=== PATIENT | male | born 1975 | race Caucasian/White ===

== ENCOUNTER → 2017-07-08 | Outpatient (CLI) | payer OTHER ==
[~2017-07-08] MED LIST: ALBUAER19 INH; ATEN50TA PO; BECL0.072 INH; RANI150C4 PO
[2017-07-08 10:41] LABS: BLOOD UREA NITROGEN 23 mg/dl (7-18); BUN/CREATININE RATIO 15.2 (10-20); CALCIUM 9.1 mg/dl (8.5-10.1); CARBON DIOXIDE 30 mmol/L (21-32); CHLORIDE 107 mmol/L (98-107); CHOLESTEROL 185 mg/dl (0-200); GLUCOSE 90 mg/dl (70-99); GLUCOSE,FASTING 90 mg/dl (70-99); POTASSIUM 4.2 mmol/L (3.5-5.1); SODIUM 143 mmol/L (136-145); URIC ACID 6.1 mg/dl (2.6-7.2)
[2017-07-08 10:43] LABS: HDL CHOLESTEROL 37 mg/dl; LDL CHOLESTEROL CALCULATED 130 mg/dl; TRIGLYCERIDES 91 mg/dl (0-150); VERY LOW DENSITY LIPOPROT CALC 18 mg/dl
== END | disposition home or self-care (01) ==
LOC: C.LAB 09:26
PROVIDERS: ATTEND Physician Assistant
DX: Z13.220 Encounter for screening for lipoid disorders (principal); Z13.1 Encounter for screening for diabetes mellitus; M10.9 Gout, unspecified; I10 Essential (primary) hypertension

== ENCOUNTER 2024-07-14 14:20 | Inpatient (IN) ==
[2024-07-14] MEDS: SODIUM CHLORIDE 0.9% 1,000 ML IV ONE (15:08)
[2024-07-14 15:22] LABS: Basophils # (auto) 0.06 K/uL (0.00-0.20); Basophils % (auto) 0.4 %; Eosinophils # (auto) 0.13 K/uL (0.00-0.50); Eosinophils % (auto) 0.9 %; Hematocrit (blood only) 42.4 % (42.0-52.0); Hemoglobin 15.1 g/dl (14.0-18.0); Immature Granulocytes # (auto) 0.12 K/uL (0.01-0.20); Immature Granulocytes % (auto) 0.8 %; Lymphocytes # (auto) 1.96 K/uL (1.20-3.40); Lymphocytes % (auto) 13.7 %; Mean Corpuscular Hemoglobin 31.1 pg (25.0-34.0); Mean Corpuscular Hgb Conc 35.6 g/dL (32.0-36.0); Mean Corpuscular Volume 87.2 fL (80.0-100.0); Mean Platelet Volume 11.7 fL (9.4-12.4); Monocytes # (auto) 1.89 K/uL (0.11-0.59); Monocytes % (auto) 13.3 %; Neutrophils % (auto) 70.9 %; Platelet Count 202 K/uL (130-400); RDW Coefficient of Variation 13.3 % (11.5-14.5); RDW Standard Deviation 42.5 fL (36.4-46.3); Red Blood Count 4.86 M/uL (4.70-6.10); White Blood Count 14.26 K/ul (4.8-10.8)
[2024-07-14 15:44] LABS: BUN Creatinine Ratio 22.3 (10-20); Calcium 8.4 mg/dl (8.6-10.3); Creatinine Clr Calc Pharmacy 37.7 ml/min; Est GFR (African American) 22.5 ml/min; Est GFR (Non-African American) 19.4 ml/min
[2024-07-14 16:01] LABS: Albumin Globulin Ratio 0.8 (0.9-2); Albumin Level 3.2 gm/dl (3.4-5.0); Bilirubin,Total 1.2 mg/dl (0.2-1.0); Globulin 3.8 gm/dl (2.5-4.0); Magnesium 2.4 mg/dl (1.7-2.4); Troponin I High Sensitivity 113.5 pg/ml (0-20)
[2024-07-14 16:19] LABS: INR 1.1 (0.9-1.1); Partial Thromboplastin Ratio 1.1; Partial Thromboplastin Time 29 Seconds (21-31); Prothrombin Time 12.2 Seconds (9.0-12.0)
[2024-07-14 17:06] LABS: Appearance Urine Cloudy (Clear); Bacteria Urine Automated None Seen (None Seen); Bilirubin Urine Negative (Negative); Blood Urine 2+ (Negative); Color Urine Yellow; Glucose Urine UA Negative (Negative); Granular Casts Urine Present /lpf (None Prsent); Ketones Urine Negative (Negative); Leukocyte Esterase Urine Negative (Negative); Nitrite Urine Negative (Negative); Protein Urine Trace (Negative); RBC Urine Automated 0-2 /hpf (0-2); Specific Gravity Urine 1.012 (1.000-1.030); Urobilinogen Urine Negative (Negative); WBC Urine Automated 0-5 /hpf (0-5)
--- NOTE | 2024-07-14 17:06 | CT Scan Report ---
ABDOMEN AND PELVIS CT WITHOUT CONTRAST CT DOSE: 1396.19 mGy.cm HISTORY: Acute kidney injury. Altered mental status. TECHNIQUE: Multiaxial CT images of the abdomen and pelvis were performed without contrast. A dose lo wering technique was utilized adhering to the principles of ALARA. COMPARISON STUDY: None. FINDINGS: Patchy groundglass airspace opacities within the lingula consistent with a pneumonia. The r ight lung base is clear. No pneumoperitoneum. No pneumatosis. There is a lucent lesion within the rig ht medial pubic bone which is likely benign. No suspicious osseous lesions identified. No acute fract ures. There is a small hiatus hernia. The heart is top normal in size. Small fat-containing umbilical hernia. The unenhanced liver, gallbladder, pancreas, spleen, and adrenal glands are unremarkable. No retroperitoneal lymphadenopathy. Normal caliber abdominal aorta. No pelvic lymphadenopathy or pelvic free fluid. Normal bladder. Suboptimal evaluation for bowel pathology due to the lack of intravenous and oral contrast. However, there is no definite bowel wall thickening or obstruction. Colonic diver ticulosis. No evidence for acute panniculitis. Normal appendix. No definite renal or ureteral calculi . There are few bilateral renal hypodense lesions within the largest on the left measuring 2.6 cm. Th tasha are incompletely characterized on this noncontrast study but statistically represent cysts. IMPRESSION: 1. Lingular airspace opacity consistent with a pneumonia. 1-2 month chest x-ray follow-up recommended to ensure resolution. 2. No definite bowel wall thickening or obstruction. 3. No hydronephrosis. 4. Normal appendix. 5. Additional findings as described above. ACT 112: Negative or not required by law. Electronically signed by: Arjun Torres M.D. 07/14/2024 5:05 PM
--- NOTE | 2024-07-14 17:08 | CT Scan Report ---
CT head/brain wo con CLINICAL HISTORY: 49 years-old Male with ams. Acutely altered mental status TECHNIQUE: Multiple axial CT images of the head were obtained without contrast. A dose lowering tech nique was utilized adhering to the principles of ALARA. CT DOSE: 625.8 mGy.cm COMPARISON: None. FINDINGS: No acute intracranial hemorrhage, midline shift, intracranial mass, hydrocephalus, territorial ischem ia or abnormal extra-axial collection. The calvarium is intact. 3.7 cm focus of polypoid mucosal thickening within the left maxillary sinus . Mastoid air cells are generally clear. Unremarkable soft tissues. IMPRESSION: No acute intracranial abnormality. ACT 112: Negative or not required by law. The above report was generated using voice recognition software. It may contain grammatical, syntax o r spelling errors. Electronically signed by: Simone Gupta M.D. 07/14/2024 5:06 PM
[2024-07-14] MEDS ORDERED: VANCOMYCIN CONSULT ACTIVE PRN (17:33)
[2024-07-14] MEDS: cefTRIAXone SODIUM 2,000 MG/50 ML BAG IV STA (18:23)
[2024-07-14] MEDS: VANCOMYCIN HCL 2,750 MG in SODIUM CHLORIDE 0.9% 500 ML IV ONE (18:58)
--- NOTE | 2024-07-14 19:07 | History & Physical Report ---
Date of Service July 14, 2024 Assessment & Plan (1) Pneumonia: Plan: In summary this is a 49-year-old male patient admitted with acute kidney injury on CKD, hyponatremia and pneumonia. Continue ceftriaxone and add doxycycline for CAP DuoNeb treatments as needed Maintain oxygen saturation above 90%. Patient currently saturating above 90% on room air Incentive spirometry Total of 70 minutes was spent in the care planning, documentation and care coordination for this patient (2) AYLIN (acute kidney injury): Plan: Consult nephrology Hold lisinopril Avoid nephrotoxins Continue IV fluids Trend creatinine Check renal ultrasound (3) CKD (chronic kidney disease) stage 3, GFR 30-59 ml/min: Plan: Patient has evidence of AYLIN on top of CKD, it has been over 1 year since he has had lab work Consult nephrology (4) Asthma: Plan: Continue albuterol as needed and Qvar inhaler Maintain sat greater than 90% (5) HTN (hypertension): Plan: Continue beta-loraine Follow BPs closely Hold lisinopril due to AYLIN Trend labs (6) Gout: Plan: Continue allopurinol (7) JAZMIN (obstructive sleep apnea): Plan: Will order CPAP for night use (8) Hyponatremia: Plan: Will follow closely and trend labs Consult nephrology History of Present Illness Chief Complaint: cough, abnormal labs in PCP office. Primary Care Provider: Axel Lester MD Rebekah Martinez is a 49-year-old male with past medical history of hypertension, obesity, fatty liver, CKD 3 AA, obstructive sleep apnea, gout and asthma who presented to the emergency room today at the suggestion of his primary care provider office after having blood work drawn yesterday. Patient had an elevated creatinine to 4.1. His last creatinine was done in June 2023 and was 1.6. He does have known CKD 3 AA. He also has hypertension. Patient has also had a cough and a sore throat for the past couple days as well. In office testing for influenza and COVID-19 were negative. Lyme testing was negative as well. Workup in the ED reveals a creatinine of 3.45, leukocytosis, hyponatremia and a lingular infiltrate on chest x-ray. Patient was given ceftriaxone and 1 dose of vancomycin in the ED. Patient feels fatigued. Patient is accompanied with his . 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 Patient is referred for admission and further workup. Medications at home: Albuterol inhaler 2 to 4 puffs every 4-6 hours as needed for wheezing Allopurinol 200 mg daily Atenolol 50 mg daily Doxycycline 100 mg p.o. twice daily Qvar inhaler 2 puffs twice daily Levocetirizine dihydrochloride 5 mg daily Lisinopril 10 mg daily Pepcid 20 mg twice daily Previous surgical history: Believes he had an appendectomy as a child Social history: Negative denies tobacco or alcohol use and has 1 daughter Family history: Mother in her 60s had cancer Father is living has a history of heart disease and atrial fibrillation Allergies Allergy/AdvReac Type Severity Reaction Status Date / Time No Known Allergies Allergy Unverified 07/14/24 19:16 Home Medications Medication Instructions Recorded Confirmed Type albuterol sulfate 90 mcg/actuation 2 puff inhalation Q4 PRN Shortness 07/14/24 07/14/24 History aerosol inhaler Of Breath Or Wheezing allopurinol 100 mg tablet 200 mg PO QPM 07/14/24 07/14/24 History atenolol 50 mg tablet 50 mg PO QPM 07/14/24 07/14/24 History beclomethasone dipropionate 40 2 inh inhalation BID 07/14/24 07/14/24 History mcg/actuation HFA breath activated aerosol (Qvar RediHaler) codeine 10 mg-guaifenesin 100 mg/5 0 ml PO DIRECTED PRN Cough 07/14/24 07/14/24 History mL oral liquid doxycycline hyclate 100 mg capsule 100 mg PO BID 07/14/24 07/14/24 History famotidine 20 mg tablet 20 mg PO HS 07/14/24 07/14/24 History levocetirizine 5 mg tablet 5 mg PO QPM 07/14/24 07/14/24 History lisinopril 10 mg tablet 10 mg PO QPM 07/14/24 07/14/24 History Past Med/Surg History Problem List (Updated 07/14/24 @ 19:34 by Arben Vázquez DO) Hyponatremia JAZMIN (obstructive sleep apnea) Gout HTN (hypertension) CKD (chronic kidney disease) stage 3, GFR 30-59 ml/min AYLIN (acute kidney injury) Pneumonia Asthma (08/12/13) Medical History Heart disease (08/12/13) Social History Smoking Status: Never smoker Feels Safe at Home: Yes Review of Systems Review of Systems: Constitutional- no fever; no weight loss Eyes- no acute visual changes ENT- no sinus drainage; no pharyngitis Pulmonary-+ cough, no wheezing, no shortness of breath Cardiac- no chest pain, no palpitations, no orthopnea, no dependent edema GI- no nausea, no vomiting, no diarrhea, no melena, no hematochezia - no dysuria, no hematuria Musculoskeletal- no arthralgias, no myalgias Derm- no rashes, no new skin lesions, no changing skin lesions Hematologic- no unusual bruising, no unusual bleeding Lymphatics- no adenopathy Endocrine- no polyuria or polydipsia; no heat or cold intolerance Neuro- no headaches, no focal neurologic symptoms Psych- no anxiety, no depression Physical Exam Physical Exam: General- adult obese, male sitting on ED bed Head- atraumatic Eyes- PERRL, EOMI, anicteric ENT- oropharynx clear Neck- supple, no JVD, no adenopathy, no thyromegaly; carotids +2/2, no bruits appreciated Lungs- clear to auscultation and percussion Heart- regular rhythm; no murmur, no gallop, no rub appreciated Abdomen- normal bowel sounds, soft, nontender, no masses or hepatosplenomegaly Extremities-trace pretibial edema, no calf tenderness; peripheral pulses intact, has venous stasis changes Neuro- alert, oriented x 3; PERRL, EOMI; no focal deficits Skin- warm & dry Results & Data Results & Data Vital Signs (Past 12 Hours) Vital Signs Temp Pulse Resp BP Pulse Ox O2 Del Method 07/14/24 17:46 120/73 07/14/24 17:36 105 H 22 120/73 94 07/14/24 17:30 110 H 23 102/64 93 07/14/24 17:15 99 H 20 93 07/14/24 17:00 113 H 18 118/65 92 07/14/24 16:48 93/59 L 07/14/24 15:57 106 H 32 H 95 07/14/24 15:45 109 H 24 98/56 L 92 07/14/24 15:36 104 H 26 H 101/65 96 07/14/24 15:21 108 H 22 98/57 L 91 07/14/24 15:14 108 H 07/14/24 14:29 36.7 C 97 H 18 124/80 95 Room Air Diagnostic Findings Laboratory Results WBC 14.26 K/ul (4.8-10.8) H 07/14/24 Unknown RBC 4.86 M/uL (4.70-6.10) 07/14/24 Unknown Hgb 15.1 g/dl (14.0-18.0) 07/14/24 Unknown Hct 42.4 % (42.0-52.0) 07/14/24 Unknown MCV 87.2 fL (80.0-100.0) 07/14/24 Unknown MCH 31.1 pg (25.0-34.0) 07/14/24 Unknown MCHC 35.6 g/dL (32.0-36.0) 07/14/24 Unknown RDW Std Deviation 42.5 fL (36.4-46.3) 07/14/24 Unknown RDW Coeff of Zuri 13.3 % (11.5-14.5) 07/14/24 Unknown Plt Count 202 K/uL (130-400) 07/14/24 Unknown MPV 11.7 fL (9.4-12.4) 07/14/24 Unknown Immature Gran % (Auto) 0.8 % 07/14/24 Unknown Neut % (Auto) 70.9 % 07/14/24 Unknown Lymph % (Auto) 13.7 % 07/14/24 Unknown [place] % (Auto) 13.3 % 07/14/24 Unknown Eos % (Auto) 0.9 % 07/14/24 Unknown Baso % (Auto) 0.4 % 07/14/24 Unknown Neut # (Auto) 10.10 K/uL (1.40-6.50) H 07/14/24 Unknown Lymph # (Auto) 1.96 K/uL (1.20-3.40) 07/14/24 Unknown [place] # (Auto) 1.89 K/uL (0.11-0.59) H 07/14/24 Unknown Eos # (Auto) 0.13 K/uL (0.00-0.50) 07/14/24 Unknown Baso # (Auto) 0.06 K/uL (0.00-0.20) 07/14/24 Unknown Immature Gran # (Auto) 0.12 K/uL (0.01-0.20) 07/14/24 Unknown PT Cancelled 07/14/24 Unknown INR Cancelled 07/14/24 Unknown APTT Cancelled 07/14/24 Unknown PTT Ratio Cancelled 07/14/24 Unknown Sodium 128 mmol/L (136-145) L 07/14/24 Unknown Potassium 4.0 mmol/L (3.5-5.1) 07/14/24 Unknown Chloride 93 mmol/L (98-107) L 07/14/24 Unknown Carbon Dioxide 21 mmol/L (21-32) 07/14/24 Unknown Anion Gap 14 (3-11) H 07/14/24 Unknown BUN 77 mg/dl (6-23) H 07/14/24 Unknown Creatinine 3.45 mg/dl (0.6-1.4) H 07/14/24 Unknown Est Cr Clr Drug Dosing 37.7 ml/min 07/14/24 Unknown Est GFR ( Amer) 22.5 ml/min 07/14/24 Unknown Est GFR (Non-Af Amer) 19.4 ml/min 07/14/24 Unknown BUN/Creatinine Ratio 22.3 (10-20) H 07/14/24 Unknown Glucose 120 mg/dl (70-99(Fasting)) H 07/14/24 Unknown Calcium 8.4 mg/dl (8.6-10.3) L 07/14/24 Unknown Magnesium 2.4 mg/dl (1.7-2.4) 07/14/24 Unknown Total Bilirubin 1.2 mg/dl (0.2-1.0) H 07/14/24 Unknown AST 231 U/L (13-39) H 07/14/24 Unknown ALT 150 U/L (7-52) H 07/14/24 Unknown Alkaline Phosphatase 61 U/L (34-104) 07/14/24 Unknown Total Creatine Kinase 2447 U/L (30-223) H 07/14/24 Unknown Troponin I High Sens 113.5 pg/ml (0-20) H* 07/14/24 Unknown Total Protein 7.0 gm/dl (6.0-8.3) 07/14/24 Unknown Albumin 3.2 gm/dl (3.4-5.0) L 07/14/24 Unknown Globulin 3.8 gm/dl (2.5-4.0) 07/14/24 Unknown Albumin/Globulin Ratio 0.8 (0.9-2) L 07/14/24 Unknown Lipase 155 U/L (11-82) H 07/14/24 Unknown Urine Color Yellow 07/14/24 Unknown Urine Appearance Cloudy (Clear) A 07/14/24 Unknown Urine pH 5.0 (4.5-7.5) 07/14/24 Unknown Ur Specific [place] 1.012 (1.000-1.030) 07/14/24 Unknown Urine Protein Trace (Negative) H 07/14/24 Unknown Urine Glucose (UA) Negative (Negative) 07/14/24 Unknown Urine Ketones Negative (Negative) 07/14/24 Unknown Urine Blood 2+ (Negative) H 07/14/24 Unknown Urine Nitrite Negative (Negative) 07/14/24 Unknown Urine Bilirubin Negative (Negative) 07/14/24 Unknown Urine Urobilinogen Negative (Negative) 07/14/24 Unknown Ur Leukocyte Esterase Negative (Negative) 07/14/24 Unknown Urine WBC (Auto) 0-5 /hpf (0-5) 07/14/24 Unknown Urine RBC (Auto) 0-2 /hpf (0-2) 07/14/24 Unknown U Hyaline Cast (Auto) 3-5 /lpf (0-2) H 07/14/24 Unknown U Epithel Cells (Auto) 3-5 /hpf (0-2) H 07/14/24 Unknown Urine Bacteria (Auto) None Seen (None Seen) 07/14/24 Unknown Granular Casts Present /lpf (None Prsent) A 07/14/24 Unknown Impressions Abdomen/Pelvis CT 07/14/24 14:[address] WITHOUT CONTRAST CT DOSE: 1396.19 mGy.cm HISTORY: Acute kidney injury. Altered mental status. TECHNIQUE: Multiaxial CT images of the abdomen and pelvis were performed without contrast. A dose lowering technique was utilized adhering to the principles of ALARA. COMPARISON STUDY: None. FINDINGS: Patchy groundglass airspace opacities within the lingula consistent with a pneumonia. The right lung base is clear. No pneumoperitoneum. No pneumatosis. There is a lucent lesion within the right medial pubic bone which is likely benign. No suspicious osseous lesions identified. No acute fractures. There is a small hiatus hernia. The heart is top normal in size. Small fat- containing umbilical hernia. The unenhanced liver, gallbladder, pancreas, spleen, and adrenal glands are unremarkable. No retroperitoneal lymphadenopathy. Normal caliber abdominal aorta. No pelvic lymphadenopathy or pelvic free fluid. Normal bladder. Suboptimal evaluation for bowel pathology due to the lack of intravenous and oral contrast. However, there is no definite bowel wall thickening or obstruction. Colonic diverticulosis. No evidence for acute panniculitis. Normal appendix. No definite renal or ureteral calculi. There are few bilateral renal hypodense lesions within the largest on the left measuring 2.6 cm. These are incompletely characterized on this noncontrast study but statistically represent cysts. IMPRESSION: 1. Lingular airspace opacity consistent with a pneumonia. 1-2 month chest x-ray follow-up recommended to ensure resolution. 2. No definite bowel wall thickening or obstruction. 3. No hydronephrosis. 4. Normal appendix. 5. Additional findings as described above. ACT 112: Negative or not required by law. Electronically signed by: Arjun Torres M.D. 07/14/2024 5:[address] 07/14/24 14:58 CT head/brain wo con CLINICAL HISTORY: 49 years-old Male with ams. Acutely altered mental status TECHNIQUE: Multiple axial CT images of the head were obtained without contrast. A dose lowering technique was utilized adhering to the principles of ALARA. CT DOSE: 625.8 mGy.cm COMPARISON: None. FINDINGS: No acute intracranial hemorrhage, midline shift, intracranial mass, hydrocephalus, territorial ischemia or abnormal extra-axial collection. The calvarium is intact. 3.7 cm focus of polypoid mucosal thickening within the left maxillary sinus. Mastoid air cells are generally clear. Unremarkable soft tissues. IMPRESSION: No acute intracranial abnormality. ACT 112: Negative or not required by law. The above report was generated using voice recognition software. It may contain grammatical, syntax or spelling errors. Electronically signed by: Simone Gupta M.D. 07/14/2024 5:06 PM Code Status & VTE Plan Code Status Full Code VTE Prophylaxis Plan VTE Prophylaxis will be ordered: Yes
--- NOTE | 2024-07-14 21:03 | Emergency Department Note ---
History of Present Illness General Chief Complaint: Flank Pain Stated Complaint: KIDNEY FAILURE Time Seen by Provider: 07/14/24 14:56 History of Present Illness Provider Complaint: + abnormal lab Returns today for: + called because of abnormal lab/test Description of abnormal result: Elevated creatinine Associated symptoms: no fever, no chills, no chest pain, no shortness of breath, no rash, no nausea or no abdominal pain Home Medications Medication Instructions Recorded Confirmed Type albuterol sulfate 90 mcg/actuation 2 puff inhalation Q4 PRN Shortness 07/14/24 07/14/24 History aerosol inhaler Of Breath Or Wheezing allopurinol 100 mg tablet 200 mg PO QPM 07/14/24 07/14/24 History atenolol 50 mg tablet 50 mg PO QPM 07/14/24 07/14/24 History beclomethasone dipropionate 40 2 inh inhalation BID 07/14/24 07/14/24 History mcg/actuation HFA breath activated aerosol (Qvar RediHaler) codeine 10 mg-guaifenesin 100 mg/5 0 ml PO DIRECTED PRN Cough 07/14/24 07/14/24 History mL oral liquid doxycycline hyclate 100 mg capsule 100 mg PO BID 07/14/24 07/14/24 History famotidine 20 mg tablet 20 mg PO HS 07/14/24 07/14/24 History levocetirizine 5 mg tablet 5 mg PO QPM 07/14/24 07/14/24 History lisinopril 10 mg tablet 10 mg PO QPM 07/14/24 07/14/24 History Allergies Allergy/AdvReac Type Severity Reaction Status Date / Time No Known Allergies Allergy Unverified 07/14/24 19:16 Past Med/Surg History Problem List (Updated 07/14/24 @ 21:03 by Dylan Valladares MD) Hyponatremia (Acute) JAZMIN (obstructive sleep apnea) AYLIN (acute kidney injury) (Acute) Pneumonia (Acute) Medical History No pertinent family history Gout HTN (hypertension) CKD (chronic kidney disease) stage 3, GFR 30-59 ml/min Asthma (08/12/13) Heart disease (08/12/13) Surgical History No pertinent past surgical history Social History Smoking Status: Never smoker Feels Safe at Home: Yes Physical Exam 2 Vital Signs: Vital Signs - 24 hr 07/14/24 14:29 07/14/24 15:14 07/14/24 15:21 Temperature 36.7 C Temperature Source Temporal Artery Sc an Pulse Rate 97 H 108 H 108 H Pulse Rate from Sp O2 Sensor 68 Respiratory Rate 18 22 Respiratory Effort / Characteristics Non-Labored Sponta neous Respiratory Depth Normal Blood Pressure 124/80 98/57 L Blood Pressure Farzana n 94 70 Pulse Oximetry 95 91 Oxygen Delivery Me thod Room Air Sepsis Recent Feve r Within 48 Hours No Sepsis New/Unexpla ined Change in Men anum Status N/A Sepsis Action Take n by Nursing No Action Required 07/14/24 15:36 07/14/24 15:45 07/14/24 15:57 Temperature Temperature Source Pulse Rate 104 H 109 H 106 H Pulse Rate from Sp O2 Sensor 58 L 70 83 Respiratory Rate 26 H 24 32 H Respiratory Effort / Characteristics Respiratory Depth Blood Pressure 101/65 98/56 L Blood Pressure Farzana n 77 70 Pulse Oximetry 96 92 95 Oxygen Delivery Me thod Sepsis Recent Feve r Within 48 Hours Sepsis New/Unexpla ined Change in Men anum Status Sepsis Action Take n by Nursing 07/14/24 16:48 07/14/24 17:00 07/14/24 17:15 Temperature Temperature Source Pulse Rate 113 H 99 H Pulse Rate from Sp O2 Sensor 62 72 Respiratory Rate 18 20 Respiratory Effort / Characteristics Respiratory Depth Blood Pressure 93/59 L 118/65 Blood Pressure Farzana n 77 82 Pulse Oximetry 92 93 Oxygen Delivery Me thod Sepsis Recent Feve r Within 48 Hours Sepsis New/Unexpla ined Change in Men anum Status Sepsis Action Take n by Nursing 07/14/24 17:30 07/14/24 17:36 07/14/24 17:46 Temperature Temperature Source Pulse Rate 110 H 105 H Pulse Rate from Sp O2 Sensor 58 L 97 H Respiratory Rate 23 22 Respiratory Effort / Characteristics Respiratory Depth Blood Pressure 102/64 120/73 120/73 Blood Pressure Farzana n 76 88 82 Pulse Oximetry 93 94 Oxygen Delivery Me thod Sepsis Recent Feve r Within 48 Hours Sepsis New/Unexpla ined Change in Men anum Status Sepsis Action Take n by Nursing 07/14/24 17:54 07/14/24 18:00 07/14/24 18:00 Temperature Temperature Source Pulse Rate 114 H Pulse Rate from Sp O2 Sensor 80 Respiratory Rate 34 H Respiratory Effort / Characteristics Respiratory Depth Blood Pressure 124/71 124/71 Blood Pressure Farzana n 88 88 Pulse Oximetry 94 Oxygen Delivery Me thod Sepsis Recent Feve r Within 48 Hours Sepsis New/Unexpla ined Change in Men anum Status Sepsis Action Take n by Nursing 07/14/24 18:03 07/14/24 18:31 07/14/24 18:31 Temperature Temperature Source Pulse Rate 105 H Pulse Rate from Sp O2 Sensor 56 L Respiratory Rate 26 H Respiratory Effort / Characteristics Respiratory Depth Blood Pressure 135/85 135/85 Blood Pressure Farzana n 96 96 Pulse Oximetry 93 Oxygen Delivery Me thod Sepsis Recent Feve r Within 48 Hours Sepsis New/Unexpla ined Change in Men anum Status Sepsis Action Take n by Nursing 07/14/24 18:31 07/14/24 18:31 07/14/24 18:33 Temperature Temperature Source Pulse Rate 105 H Pulse Rate from Sp O2 Sensor 88 Respiratory Rate 23 Respiratory Effort / Characteristics Respiratory Depth Blood Pressure 135/85 135/85 Blood Pressure Farzana n 96 96 Pulse Oximetry 92 Oxygen Delivery Me thod Sepsis Recent Feve r Within 48 Hours Sepsis New/Unexpla ined Change in Men anum Status Sepsis Action Take n by Nursing 07/14/24 18:45 07/14/24 18:54 07/14/24 19:00 Temperature Temperature Source Pulse Rate 135 H 109 H Pulse Rate from Sp O2 Sensor 77 75 Respiratory Rate 20 28 H Respiratory Effort / Characteristics Respiratory Depth Blood Pressure 115/74 Blood Pressure Farzana n 82 Pulse Oximetry 91 93 Oxygen Delivery Me thod Sepsis Recent Feve r Within 48 Hours Sepsis New/Unexpla ined Change in Men anum Status Sepsis Action Take n by Nursing 07/14/24 19:07 07/14/24 19:09 07/14/24 19:15 Temperature Temperature Source Pulse Rate 90 85 Pulse Rate from Sp O2 Sensor 67 Respiratory Rate 27 H Respiratory Effort / Characteristics Respiratory Depth Blood Pressure 93/70 L Blood Pressure Farzana n 78 Pulse Oximetry 93 Oxygen Delivery Me thod Sepsis Recent Feve r Within 48 Hours Sepsis New/Unexpla ined Change in Men anum Status Sepsis Action Take n by Nursing 07/14/24 19:15 07/14/24 19:18 07/14/24 19:21 Temperature Temperature Source Pulse Rate 91 H 102 H Pulse Rate from Sp O2 Sensor 68 Respiratory Rate 15 23 Respiratory Effort / Characteristics Respiratory Depth Blood Pressure 93/70 L Blood Pressure Farzana n 78 Pulse Oximetry 93 94 Oxygen Delivery Me thod Sepsis Recent Feve r Within 48 Hours Sepsis New/Unexpla ined Change in Men anum Status Sepsis Action Take n by Nursing 07/14/24 19:30 07/14/24 19:42 07/14/24 19:45 Temperature Temperature Source Pulse Rate 102 H Pulse Rate from Sp O2 Sensor 81 Respiratory Rate 24 Respiratory Effort / Characteristics Respiratory Depth Blood Pressure 96/63 L 117/73 Blood Pressure Farzana n 74 92 Pulse Oximetry 92 Oxygen Delivery Me thod Sepsis Recent Feve r Within 48 Hours Sepsis New/Unexpla ined Change in Men anum Status Sepsis Action Take n by Nursing 07/14/24 19:45 07/14/24 19:48 07/14/24 19:57 Temperature Temperature Source Pulse Rate 106 H 103 H Pulse Rate from Sp O2 Sensor 58 L 97 H Respiratory Rate 25 H 22 Respiratory Effort / Characteristics Respiratory Depth Blood Pressure 117/73 Blood Pressure Farzana n 92 Pulse Oximetry 91 91 Oxygen Delivery Me thod Sepsis Recent Feve r Within 48 Hours Sepsis New/Unexpla ined Change in Men anum Status Sepsis Action Take n by Nursing 07/14/24 20:02 07/14/24 20:02 07/14/24 20:02 Temperature Temperature Source Pulse Rate Pulse Rate from Sp O2 Sensor Respiratory Rate Respiratory Effort / Characteristics Respiratory Depth Blood Pressure 130/75 130/75 130/75 Blood Pressure Farzana n 91 91 91 Pulse Oximetry Oxygen Delivery Me thod Sepsis Recent Feve r Within 48 Hours Sepsis New/Unexpla ined Change in Men anum Status Sepsis Action Take n by Nursing Physical Exam: Physical Exam GENERAL: oriented to person, place, and time. appears well-developed and well- nourished. HENT: Exam performed. - Head: Normocephalic and atraumatic. EYES: Conjunctivae and EOM are normal. Right eye exhibits no discharge. Left eye exhibits no discharge. No scleral icterus. NECK: Normal range of motion. Neck supple. No JVD present. CV: Normal rate, irregular rhythm, normal heart sounds and intact distal pulses. There is no peripheral edema. Palpable radial pulses bue. PULM/CHEST: Effort normal and breath sounds normal. No respiratory distress. No stridor. no wheezes. no rales. ABD: The abdomen is soft and obese. There is no tenderness. NEURO: Motor and sensation grossly intact. SKIN: Skin is warm and dry. He is not diaphoretic. PSYCH: normal mood and affect. Behavior is normal. Judgment and thought content normal. Course Course 1456: The patient was evaluated in room D8. A complete history and physical exam was performed Cardiac monitoring: An order was placed for continuous cardiac monitoring. The monitor shows a rate of 100 with atrial flutter rhythm interpreted by me Called to bedside by nursing because the patient had a syncopal episode while getting IV placed. On my arrival the patient is alert and oriented x 3 and states he has never had an IV placed before and was very nervous about it. Patient will be moved to regular room in a pod and labs and imaging will be conducted. 1735: Vital signs stable. Labs show leukocytosis of 14.26. Sodium 128. BUN 77 creatinine 3.45. Last year the patient's BUN in our system was 31 his creatinine was 1.42. Total bilirubin 1.2 AST 231 ALT 150 total creatinine kinase 2447. High-sensitivity troponin 113.5. Patient continues deny chest pain. Lipase 155. Urinalysis unremarkable. Imaging shows possible lingular pneumonia. Patient treated with Rocephin and vancomycin will be admitted to the [facility] hospitalist team. Administered Medications Discontinued Medications Sodium Chloride (Nss) 1,000 mls @ 999 mls/hr IV .Q1H1M ONE Stop: 07/14/24 15:57 Last Infusion: 07/14/24 18:00 Dose: Infused Documented By: Admin: 07/14/24 15:08 Dose: 999 mls/hr Documented By: CHAYITO Ceftriaxone Sodium (Rocephin) 2,000 mg in 50 mls @ 100 mls/hr IV NOW STA Stop: 07/14/24 18:02 Last Infusion: 07/14/24 19:20 Dose: Infused Documented By: Admin: 07/14/24 18:23 Dose: 100 mls/hr Documented By: SHAMIKA Vancomycin HCl 2,750 mg/ (Sodium Chloride) 555 mls @ 200 mls/hr IV NOW ONE Stop: 07/14/24 20:22 Last Admin: 07/14/24 18:58 Dose: 200 mls/hr Documented By: SHAIMKA Medical Decision Making Laboratory Data Attestation: I reviewed the patient's lab results. 07/14/24 Unknown 07/14/24 Unknown Lab Results 07/14/24 07/14/24 07/14/24 Range/Units 15:52 20:48 Unknown WBC 14.26 H (4.8-10.8) K/ul RBC 4.86 (4.70-6.10) M/uL Hgb 15.1 (14.0-18.0) g/dl Hct 42.4 (42.0-52.0) % MCV 87.2 (80.0-100.0) fL MCH 31.1 (25.0-34.0) pg MCHC 35.6 (32.0-36.0) g/dL RDW Std Deviation 42.5 (36.4-46.3) fL RDW Coeff of Zuri 13.3 (11.5-14.5) % Plt Count 202 (130-400) K/uL MPV 11.7 (9.4-12.4) fL Immature Gran % (Auto) 0.8 % Neut % (Auto) 70.9 % Lymph % (Auto) 13.7 % [place] % (Auto) 13.3 % Eos % (Auto) 0.9 % Baso % (Auto) 0.4 % Neut # (Auto) 10.10 H (1.40-6.50) K/uL Lymph # (Auto) 1.96 (1.20-3.40) K/uL [place] # (Auto) 1.89 H (0.11-0.59) K/uL Eos # (Auto) 0.13 (0.00-0.50) K/uL Baso # (Auto) 0.06 (0.00-0.20) K/uL Immature Gran # (Auto) 0.12 (0.01-0.20) K/uL PT 12.2 H Cancelled (9.0-12.0) Seconds INR 1.1 Cancelled (0.9-1.1) APTT 29 Cancelled (21-31) Seconds PTT Ratio 1.1 Cancelled Sodium 128 L (136-145) mmol/L Potassium 4.0 (3.5-5.1) mmol/L Chloride 93 L (98-107) mmol/L Carbon Dioxide 21 (21-32) mmol/L Anion Gap 14 H (3-11) BUN 77 H (6-23) mg/dl Creatinine 3.45 H (0.6-1.4) mg/dl Est Cr Clr Drug Dosing 37.7 ml/min Est GFR ( Amer) 22.5 ml/min Est GFR (Non-Af Amer) 19.4 ml/min BUN/Creatinine Ratio 22.3 H (10-20) Glucose 120 H (70-99(Fasting)) mg/dl POC Glucose 111 H (70-99) mg/dl Calcium 8.4 L (8.6-10.3) mg/dl Magnesium 2.4 (1.7-2.4) mg/dl Total Bilirubin 1.2 H (0.2-1.0) mg/dl AST 231 H (13-39) U/L ALT 150 H (7-52) U/L Alkaline Phosphatase 61 (34-104) U/L Total Creatine Kinase 2447 H (30-223) U/L Troponin I High Sens 113.5 H* (0-20) pg/ml Total Protein 7.0 (6.0-8.3) gm/dl Albumin 3.2 L (3.4-5.0) gm/dl Globulin 3.8 (2.5-4.0) gm/dl Albumin/Globulin Ratio 0.8 L (0.9-2) Lipase 155 H (11-82) U/L Urine Color Yellow Urine Appearance Cloudy A (Clear) Urine pH 5.0 (4.5-7.5) Ur Specific Almond 1.012 (1.000-1.030) Urine Protein Trace H (Negative) Urine Glucose (UA) Negative (Negative) Urine Ketones Negative (Negative) Urine Blood 2+ H (Negative) Urine Nitrite Negative (Negative) Urine Bilirubin Negative (Negative) Urine Urobilinogen Negative (Negative) Ur Leukocyte Esterase Negative (Negative) Urine WBC (Auto) 0-5 (0-5) /hpf Urine RBC (Auto) 0-2 (0-2) /hpf U Hyaline Cast (Auto) 3-5 H (0-2) /lpf U Epithel Cells (Auto) 3-5 H (0-2) /hpf Urine Bacteria (Auto) None Seen (None Seen) Granular Casts Present A (None Prsent) /lpf Imaging Data Radiologist's Impression: Abdomen/Pelvis CT 07/14/24 14:[address] WITHOUT CONTRAST CT DOSE: 1396.19 mGy.cm HISTORY: Acute kidney injury. Altered mental status. TECHNIQUE: Multiaxial CT images of the abdomen and pelvis were performed without contrast. A dose lowering technique was utilized adhering to the principles of ALARA. COMPARISON STUDY: None. FINDINGS: Patchy groundglass airspace opacities within the lingula consistent with a pneumonia. The right lung base is clear. No pneumoperitoneum. No pneumatosis. There is a lucent lesion within the right medial pubic bone which is likely benign. No suspicious osseous lesions identified. No acute fractures. There is a small hiatus hernia. The heart is top normal in size. Small fat- containing umbilical hernia. The unenhanced liver, gallbladder, pancreas, spleen, and adrenal glands are unremarkable. No retroperitoneal lymphadenopathy. Normal caliber abdominal aorta. No pelvic lymphadenopathy or pelvic free fluid. Normal bladder. Suboptimal evaluation for bowel pathology due to the lack of intravenous and oral contrast. However, there is no definite bowel wall thickening or obstruction. Colonic diverticulosis. No evidence for acute panniculitis. Normal appendix. No definite renal or ureteral calculi. There are few bilateral renal hypodense lesions within the largest on the left measuring 2.6 cm. These are incompletely characterized on this noncontrast study but statistically represent cysts. IMPRESSION: 1. Lingular airspace opacity consistent with a pneumonia. 1-2 month chest x-ray follow-up recommended to ensure resolution. 2. No definite bowel wall thickening or obstruction. 3. No hydronephrosis. 4. Normal appendix. 5. Additional findings as described above. ACT 112: Negative or not required by law. Electronically signed by: Arjun Torres M.D. 07/14/2024 5:[address] 07/14/24 14:58 CT head/brain wo con CLINICAL HISTORY: 49 years-old Male with ams. Acutely altered mental status TECHNIQUE: Multiple axial CT images of the head were obtained without contrast. A dose lowering technique was utilized adhering to the principles of ALARA. CT DOSE: 625.8 mGy.cm COMPARISON: None. FINDINGS: No acute intracranial hemorrhage, midline shift, intracranial mass, hydrocephalus, territorial ischemia or abnormal extra-axial collection. The calvarium is intact. 3.7 cm focus of polypoid mucosal thickening within the left maxillary sinus. Mastoid air cells are generally clear. Unremarkable soft tissues. IMPRESSION: No acute intracranial abnormality. ACT 112: Negative or not required by law. The above report was generated using voice recognition software. It may contain grammatical, syntax or spelling errors. Electronically signed by: Simone Gupta M.D. 07/14/2024 5:06 PM ECG Data Attestation: I personally reviewed and interpreted this ECG as follows: Rate (beats per minute): 109 Rhythm: atrial flutter Findings: no ST depression, no ST elevation or no prolonged QT MDM Narrative 1456: The patient was evaluated in room D8. A complete history and physical exam was performed Cardiac monitoring: An order was placed for continuous cardiac monitoring. The monitor shows a rate of 100 with atrial flutter rhythm interpreted by me Called to bedside by nursing because the patient had a syncopal episode while getting IV placed. On my arrival the patient is alert and oriented x 3 and states he has never had an IV placed before and was very nervous about it. Patient will be moved to regular room in a pod and labs and imaging will be conducted. 1735: Vital signs stable. Labs show leukocytosis of 14.26. Sodium 128. BUN 77 creatinine 3.45. Last year the patient's BUN in our system was 31 his creatinine was 1.42. Total bilirubin 1.2 AST 231 ALT 150 total creatinine kinase 2447. High-sensitivity troponin 113.5. Patient continues deny chest pain. Lipase 155. Urinalysis unremarkable. Imaging shows possible lingular pneumonia. Patient treated with Rocephin and vancomycin will be admitted to the [facility] Hospitalist team. Impression & Plan Hyponatremia, AYLIN (acute kidney injury), Pneumonia Discharge Plan Visit Data Chief Complaint: Flank Pain Stated Complaint: KIDNEY FAILURE ED Provider: Dylan Valladares Discharge Problem: Hyponatremia, AYLIN (acute kidney injury), Pneumonia Patient Disposition: Admitted As Inpatient Forms Stand Alone Forms: My [facility] Prescriptions Prescriptions: No Action doxycycline hyclate 100 mg capsule 100 mg PO BID allopurinol 100 mg tablet 200 mg PO QPM famotidine 20 mg Tablet 20 mg PO HS lisinopril 10 mg tablet 10 mg PO QPM codeine-guaifenesin 10-100 mg/5 mL liquid 0 ml PO DIRECTED PRN (Reason: Cough) albuterol sulfate 90 mcg/actuation HFA aerosol inhaler 2 puff INHALATION Q4 PRN (Reason: Shortness Of Breath Or Wheezing) atenolol 50 mg tablet 50 mg PO QPM levocetirizine 5 mg tablet 5 mg PO QPM Qvar RediHaler 40 mcg/actuation HFA aerosol breath activated 2 inh INHALATION BID Referrals Referrals: Axel Lester MD [Primary Care Provider] -
[2024-07-14] MEDS ORDERED: MAGNESIUM HYDROXIDE SUSP 30 ML UDC PO PRN (21:21)
[2024-07-14] MEDS ORDERED: METOPROLOL TARTRATE 1 MG/ML VIAL IV PRN (21:21)
[2024-07-14] MEDS ORDERED: ALUMINUM/MAGNESIUM SUSP 30 ML UDC PO PRN (21:21)
[2024-07-14] MEDS ORDERED: MELATONIN 3 MG TAB PO PRN (21:21)
[2024-07-14] MEDS ORDERED: POLYETHYLENE (MIRALAX) 17 GM PACK PO PRN (21:21)
[2024-07-14] MEDS ORDERED: ALBUT/IPRATROP 3MG/0.5MG NEB 3 ML VIAL NEB PRN (21:21)
[2024-07-14] MEDS ORDERED: ONDANSETRON INJ 2 MG/ML 2 ML VIAL IV PRN (21:21)
[2024-07-14] MEDS ORDERED: ACETAMINOPHEN 325 MG TAB PO PRN (21:21)
[2024-07-14] MEDS ORDERED: ALBUTEROL HFA 8 GM INHALER INH PRN (21:47)
[2024-07-14] MEDS: CETIRIZINE HCL 10 MG TABLET PO SCH (22:11)
[2024-07-14] MEDS: FAMOTIDINE 10 MG TABLET PO SCH (22:11)
[2024-07-14] MEDS: DOXYCYCLINE HYCLATE 100 MG CAP PO SCH (22:11)
[2024-07-14] MEDS: PLASMA-LYTE A 1,000 ML IV SCH (22:58)
--- OUTSIDE RECORDS SUMMARY | 2024-07-15 02:04 | External Medical Summary | Summary of Care ---
Author Name Unknown Organization [facility] Address [address] [place] [address] Phone [phone] Care Team Providers Care Gum Scoring Machine Operator Name Role Phone Axel Lester MD Primary Care Provider [phone] Reason for Visit * Reason Onset Date Comments Mycode - Thinking About It But No Form Provided 07/13/2024 Encounter Details Date Type Department Care Team (Late st Contact Info) Description 07/13/2024 Orders Only Outcomes Research Department [address] [place] [address] Cindy Lopes CHRA MyCode Nonconsent Documentation Allergies No known active allergiesdocumented as of this encounter (statuses as of 07/13/2024) Medications Medication Sig Dispensed Refills Start Date End Date Status omeprazole (PRILOSEC) 10 MG CPDR Take 1 Capsule by mouth in the morning. Active Nystatin-Triamcinol one 810796-4.1 UNIT/GM-% External Cream (Mycolog) Apply topically to affected area 2 times a day . To affacted area for two weeks. 30 g 1 07/22/20 22 Active Levocetirizine Dihydrochloride 5 MG Oral Tablet TAKE 1 TABLET BY MOUTH ONCE DAILY IN THE EVENING 90 Tablet 3 08/20/20 23 Active Allopurinol 100 MG Oral Tablet (Zyloprim)Indicatio ns:Gouty arthropathy TAKE 2 TABLETS BY MOUTH IN THE MORNING 180 Tablet 2 11/03/20 23 Active Lisinopril 10 MG Oral Tablet (Prinivil) TAKE 1 TABLET BY MOUTH IN THE MORNING 90 Tablet 2 11/19/20 23 Active Atenolol 50 MG Oral Tablet (Tenormin) Take 1 tablet by mouth once daily 90 Tablet 3 12/11/19 24 Active Qvar RediHaler 40 MCG/ACT Inhalation Aerosol Breath Activated (Beclomethasone Diprop HFA)Indications:Gas troesophageal reflux disease without esophagitis INHALE 2 PUFFS TWICE DAILY 31.8 g 1 06/22/20 24 Active Albuterol Sulfate HFA 108 (90 Base) MCG/ACT Inhalation Aerosol SolutionIndications :Asthma with severity to be determined INHALE 2 TO 4 PUFFS BY MOUTH EVERY 4 TO 6 HOURS NEEDED FOR SHORTNESS OF BREATH FOR WHEEZING 36 g 2 08/13/20 22 024 Discontinued(Re fill) Nirmatrelvir&Ritona vir 300/100 20 x 150 MG & 10 x 100MG Oral Tablet Therapy Pack (Paxlovid (300/100))Indicatio ns:Close exposure to COVID-19 virus,COVID-19 virus infection Take 2 pink tablets of Nirmatrelvir and 1 white tablet of Ritonavir two times a day by mouth. 30 Tablet 11/17/20 23 024 Discontinued Ozempic (0.25 or 0.5 MG/DOSE) 2 MG/3ML Solution Pen-injector (Semaglutide(0.25 or 0.5MG/DOS))Indicati ons:Super obese Inject 0.5 mg under the skin once a week. 3 mL 5 12/14/19 24 024 Discontinued documented as of this encounter (statuses as of 07/13/2024) Active Problems Problem Noted Date Diagnosed Date Stage 3a chronic kidney disease 10/08/2020 Overview: Per CKD protocol HTN, goal below 130/80 07/07/2018 Gastroesophageal reflux disease with esophagitis 04/16/2018 Chronic venous stasis dermatitis 07/02/2017 Gouty arthropathy 09/11/2016 Overview: 10/15 uric acid 5.9. 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 0 to 59.9 in adult 08/31/2017 07/16/2022 Overview: Per Obesity protocol #1 - Per Obesity Protocol, #19 Tear of lateral meniscus of right knee 01/19/2014 04/16/2018 Elevated serum creatinine 05/26/2013 Allergic rhinitis 04/18/2013 07/12/2024 Genetic Sleep Disorder Resea [facility] Other*[id number] 01/09/2012 06/26/2016 Sleep related hypoxia 01/09/20122015 Sleep apnea 08/13/2011 01/09/2012 Overview: 08/10-refer for study Routine medical exam 08/13/2011 016 Overview: NEEDS PCV23. 08/13 Uric acid 8.9 GETS near-syncope with blood draw-should do lying down 08/13 Renal US WNL +stone & small cyst 08/13 Cr 1.5 stable 03/13 Cr 1.45. Stable. Glucose 94. CBC WNL 04/11 [facility] [place] labs--Cr 1.5 TC 173, LDL 132, TG 106, HDL 31- Esophageal reflux 11/16/2008 04/16/2018 Asthma with severity to be determined 05/06/2005 11/14/2013 Overview: Mild intermittent. ICD-10 update of inactive term HTN, goal below 140/90 06/13/200407/07 Overview: 08/13 Microalb WNL. [facility] [place]. Cr 1.5 03/13 Cr 1.45 documented as of this encounter (statuses as of 07/13/2024) Immunizations Name Administration Dates Next Due COVID-19 mRNA, LNP-s, No Pre serve, 2-Dose Series (Pfizer) 12/11/2020,11/19/2020 Seasonal Influenza, Split, I IV3, With Preserve, Inj 08/27/2016,08/30/2014,09/30/2013, 0 09 TDAP (age 10 and older)(Boostrix) 02/13/2014 documented as of this encounter Social History Tobacco Use Types Packs/Day Years Used Date Smoking Tobacco: Never Smokeless Tobacco: Never Alcohol Use Standard Drinks/Week Comments No 0 (1 standard drink = 0.6 oz pur e alcohol) PHQ-2 Answer Date Recorded PHQ Adult Total Score 2 07/16/2021 Hunger Vital Sign Answer Date Recorded Within the past 12 months, y ou worried that your food would run out before you got the money to buy more. Never true 07/11/20 23 Within the past 12 months, t he food you bought just didn't last and you didn't have money to get more. Never true 07/11/2023 Sex and Gender Information Value Date Recorded Sex Assigned at Male 07/11/2023 8:14 AM EDT Gender Identity Male 07/11/2023 8:14 AM EDT Sexual Orientation Straight 07/11/2023 8: 14 AM EDT Job Start Date Occupation Industry Not on file Not on file Not on file documented as of this encounter Progress Notes * Cindy Lopes CHRA - 07/13/2024 2:52 PM EDT MyCode Nonconsent Documentation Pascual Noah Baxtersydnie was approached in the clinic regarding participation in the MyCode Project and didnot consent. documented in this encounter Plan of Treatment Upcoming Encounters Date Type Department Care Team (Late st Contact Info) Description 07/18/2024 4:20 PM EDT Office Visit [facility] [address] [place] [id number] Axel Lester MD [address] [place] [address] Health Maintenance Due Date Last Done Comments Pneumococcal Vaccine: Pediatrics (0 to 5 Years) and At-Risk Patients (6 to 64 Years) (1 of 2 - PCV) 1979 HIV Screening 1988 Hepatitis C Screening 1991 Hepatitis B Vaccine (1 of 3 - 19+ 3-dose series) 1992 Colonoscopy 2018 Fecal Occult Blood Test 2018 Sigmoidoscopy 2018 Depression Screening 07/16/2022 07/16/2021 Zoster Vaccines (1 of 2) 2023 COVID-19 Vaccine ( - 2022- season) 2023 12/11/2020, 11/19/2020 GFR 01/17/2024 07/17/2023, 05/01, 07/03/2021, Additional history exists DTaP,Tdap,and Td Vaccines (2 - Td or Tdap) 02/14/2024 02/13/2014 Albumin/Creatinine Ratio 06/26/2024 023, 07/05/2020, 07/07/2019, Additional history exists CKD HGB USE SMARTSET 44684 06/26/202406/26, 07/05/2020, 07/12/2019, Additional history exists CKD PHOS USE SMARTSET 10211 06/26/2024 07/06/2023, 07/05/2020, 07/12/2019 Influenza Vaccine (FLU shot) (#1) 2024 08/27/2016, 08/30/2014, 09/30/2013, Additional history exists Diabetes Screening 07/17/2026 07/17/2023, 0 05/26/2022, 07/03/2021, Additional history exists Cologuard 08/13/2026 08/13/2023, 09/0 05/2023, 08/06/2023 Colorectal Cancer Screening 08/13/2026 Lipid Panel 07/17/2028 07/17/2023, 05/01, 07/03/2021, Additional history exists HPV (Gardasil) Vaccine Aged Out No lo nger eligible based on patient's age to complete this topic MENINGOCOCCAL (MENACTRA/MENVEO) Aged Out No longer eligible based on patient's age to complete this topic documented as of this encounter Medical Devices Not on filedocumented as of this encounter Care Teams Gum Scoring Machine Operator Relationship Specialty Start Date End Date Axel Lester MD [address] [place] [address] PCP - General Family Medicine 07/12/19 documented as of this encounter
--- OUTSIDE RECORDS SUMMARY | 2024-07-15 02:04 | External Medical Summary | Summary of Care ---
Author Name Unknown Organization [facility] Address [address] [facility] [place] [address] Phone [phone] Care Team Providers Care Shop Tailor Apprentice Name Role Phone Axel Lester MD Primary Care Provider [phone] Reason for Visit * Reason Comments Outpatient Testing Encounter Details Date Type Department Care Team (Late st Contact Info) Description 07/13/2024 3:40 PM EDT Laboratory Laboratory, [facility] [address] [facility] [place] [id number] [facility] [address] [place] [address] Lipid screening; Stage 3a chronic kidney disease; Malaise and fatigue; Screening for diabetes mellitus Allergies No known active allergiesdocumented as of this encounter (statuses as of 07/13/2024) Medications Medication Sig Dispensed Refills Start Date End Date Status omeprazole (PRILOSEC) 10 MG CPDR Take 1 Capsule by mouth in the morning. Active Nystatin-Triamcinolon e 101538-0.1 UNIT/GM-% External Cream (Mycolog) Apply topically to affected area 2 times a day . To affacted area for two weeks. 30 g 1 07/22/2022 Active Levocetirizine Dihydrochloride 5 MG Oral Tablet TAKE 1 TABLET BY MOUTH ONCE DAILY IN THE EVENING 90 Tablet 3 08/20/2023 Active Allopurinol 100 MG Oral Tablet (Zyloprim)Indications :Gouty arthropathy TAKE 2 TABLETS BY MOUTH IN THE MORNING 180 Tablet 2 11/03/2023 Active Lisinopril 10 MG Oral Tablet (Prinivil) TAKE 1 TABLET BY MOUTH IN THE MORNING 90 Tablet 2 11/19/2023 Active Atenolol 50 MG Oral Tablet (Tenormin) Take 1 tablet by mouth once daily 90 Tablet 3 12/11/2023 Active Qvar RediHaler 40 MCG/ACT Inhalation Aerosol Breath Activated (Beclomethasone Diprop HFA)Indications:Gastr oesophageal reflux disease without esophagitis INHALE 2 PUFFS TWICE DAILY 31.8 g 1 06/22/2024 Active Fluconazole 150 MG Oral Tablet (Diflucan) TAKE ONE TABLET BY MOUTH A ONE-TIME DOSE 05/14/2024 Active Albuterol Sulfate HFA 108 (90 Base) MCG/ACT Inhalation Aerosol Solution INHALE 2 TO 4 PUFFS BY MOUTH EVERY 4 TO 6 HOURS NEEDED FOR SHORTNESS OF BREATH FOR WHEEZING 36 g 2 07/13/2024 Active Doxycycline Hyclate 100 MG Oral Capsule Take 1 Capsule by mouth in the morning and 1 Capsule before bedtime. Do all this for 10 days. Until gone.. 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 08/13 Uric acid 8.9 GETS near-syncope with blood draw-should do lying down 08/13 Renal US WNL +stone & small cyst 08/13 Cr 1.5 stable 03/13 Cr 1.45. Stable. Glucose 94. CBC WNL 04/11 [facility] labs--Cr 1.5 TC 173, LDL 132, TG 106, HDL 31- Esophageal reflux 11/16/2008 04/16/2018 Asthma with severity to be determined 05/06/2005 11/14/2013 Overview: Mild intermittent. ICD-10 update of inactive term HTN, goal below 140/90 06/13/200407/07 Overview: 08/13 Microalb WNL. [facility]. Cr 1.5 03/13 Cr 1.45 documented as [...] on file documented as of this encounter Plan of Treatment Upcoming Encounters Date Type Department Care Team (Late st Contact Info) Description 07/18/2024 4:20 PM EDT Office Visit [facility] [address] [place] [address] Axel Lester MD [address] [place] [address] Pending Results Name Type Priority Associated Diagnoses Date /Time LIPID PANEL WITH DIRECT LDL IF TG IS HIGH Lab Routine Lipid screening 07/13/2024 3:40 PM EDT COMPREHENSIVE METABOLIC PANEL Lab Routine Malaise and fatigue 07/13/2024 3:40 PM EDT CBC WITH WBC DIFFERENTIAL AND ANEMIA REFLEX WORKUP Lab Routine Malaise and fatigue 07/13/2024 3:40 PM EDT LYME DISEASE ANTIBODY SCREEN WITH REFLEX TO CONFIRMATION Lab Routine Malaise and fatigue 07/13/2024 3:40 PM EDT ANAPLASMA PHAGOCYTOPHILUM DNA, QL REAL-TIME PCR Lab Routine Malaise and fatigue 07/13/2024 3:40 PM EDT HEMOGLOBIN A1C Lab Routine Screening for diabetes mellitus 07/13/2024 3:40 PM EDT ANEMIA CBC Lab Routine Malaise and fatigue 07/13/2024 3:40 PM EDT DIFFERENTIAL, AUTOMATED Lab Routine Malaise and fatigue 07/13/2024 3:40 PM EDT ANEMIA REFLEX CHEMISTRY HOLD Lab Routine Malaise and fatigue 07/13/2024 3:40 PM EDT LYME DISEASE ANTIBODY SCREEN Lab Routine Malaise and fatigue 07/13/2024 3:40 PM EDT URINALYSIS, REFLEX TO MICROSCOPIC Lab Routine Malaise and fatigue 07/13/2024 3:47 PM EDT Health Maintenance Due Date Last Done Comments [...] (1 of 2) 2023 COVID-19 Vaccine ( season) 2023 12/11/2020, 11/19/2020 GFR 01/17/2024 07/17/2023, 05/01, 07/03/2021, Additional history exists DTaP,Tdap,and Td Vaccines (2 - Td or Tdap) 02/14/2024 02/13/2014 Albumin/Creatinine Ratio 06/26/2024 023, 07/05/2020, 07/07/2019, Additional history exists CKD HGB USE SMARTSET 43722 06/26/202406/26, 07/05/2020, 07/12/2019, Additional history exists CKD PHOS USE SMARTSET 38834 06/26/202405/31, 07/05/2020, 07/12/2019 Influenza Vaccine (FLU shot) (#1) 2024 08/27/2016, 08/30/2014, 09/30/2013, Additional history exists Diabetes Screening 07/17/2026 07/17/2023, 0 05/26/2022, 07/03/2021, Additional history exists Cologuard 08/13/2026 08/13/2023, 05/2023, 08/06/2023 Colorectal Cancer Screening 08/13/2026 Lipid Panel 07/17/2028 07/17/2023, 05/01, 07/03/2021, Additional history exists HPV (Gardasil) Vaccine Aged Out No lo nger eligible based on patient's age to complete this topic MENINGOCOCCAL (MENACTRA/MENVEO) Aged Out No longer eligible based on patient's age to complete this topic documented as of this encounter Medical Devices Not on filedocumented as of this encounter Visit Diagnoses Diagnosis Lipid screening Screening for lipoid disorders Stage 3a chronic kidney disease Malaise and fatigue Other malaise and fatigue Screening for diabetes mellitus documented in this encounter Care Teams Shop Tailor Apprentice Relationship Specialty Start Date End Date Axel Lester MD [address] [place] [id number] PCP - General Family Medicine 07/12/19 documented as of this encounter
--- OUTSIDE RECORDS SUMMARY | 2024-07-15 02:04 | External Medical Summary ---
Author Name Unknown Address Unknown Organization K01:LAB[facility]ATORY [facility] – [place] - [address] [place] [address] Laboratory Report Ordering Provider Test Date Status BETTYE DOTSON 07/13/2024 15:47:54 Final Observation Date Value Abnormality Reference (Units ) Status Color of Urine by Auto 07/13/2024 15:47:54 Yellow Colorless, Light Yellow, Yellow, Dark Yellow Final Clarity, Urine 07/13/2024 15:47:54 Slightly Cloudy Abnormal Clear Final Glucose [Mass/volume] in Urine by Automated test strip 07/13/2024 15:47:54 Negative Negative (mg/dL) Final Bilirubin.total [Presence] in Urine by Automated test strip 07/13/2024 15:47:54 Negative Negative Final Ketones [Mass/volume] in Urine by Automated test strip 07/13/2024 15:47:54 Negative Negative (mg/dL) Final Specific gravity, Urine 07/13/2024 15:47:54 1.012 1.003-1.030 Final Hemoglobin [Presence] in Urine by Automated test strip 07/13/2024 15:47:54 Large Abnormal Negative Final pH, Urine 07/13/2024 15:47:54 5.5 5.0-7.5 (Units) Final Protein [Mass/volume] in Urine by Automated test strip 07/13/2024 15:47:54 30 Abnormal Negative (mg/dL) Final Urobilinogen [Mass/volume] in Urine by Automated test strip 07/13/2024 15:47:54 Normal Normal (mg/dL) Final Nitrite [Presence] in Urine by Automated test strip 07/13/2024 15:47:54 Negative Negative Final Leukocyte esterase [Presence] in Urine by Automated test strip 07/13/2024 15:47:54 Negative Negative Final RBC, Urine 07/13/2024 15:47:54 3-5 Abnormal 0-2 (/HPF) Final WBC, Urine 07/13/2024 15:47:54 6-9 Abnormal 0-2 (/HPF) Final Bacteria [#/area] in Urine sediment by Microscopy high power field 07/13/2024 15:47:54 0-25 0-25 (/HPF) Final Crystals.amorphous [#/area] in Urine sediment by Microscopy high power field 07/13/2024 15:47:54 Many Abnormal None (/HPF) Final Performing Location LABORATORY [facility] – [place], [place] - [address] [facility] [address]
--- OUTSIDE RECORDS SUMMARY | 2024-07-15 02:04 | External Medical Summary ---
Author Name Unknown Address Unknown Organization K01:LABORATORY [facility] – [place] - [address] [facility] [place] [address] Laboratory Report Ordering Provider Test Date Status BETTYE DOTSON 07/13/2024 15:53:37 Final Observation Date Value Abnormality Reference (Units ) Status SARS Coronavirus 2 07/13/2024 15:53:37 Negative N egative Final No SARS-CoV2 Coronavirus RNA detected by PCR (amplified probe).
This express test was developed and its performance characteristics determined by [facility]. It has not been cleared or approved by the U.S. Food and Drug Administration (FDA). FDA does not require this test to go thru premarket FDA review. This test is used for clinical purposes. It should not be regarded as investigational or for research. This laboratory is certified under the Clinical Laboratory Improvement Amendments (CLIA) as qualified to perform high complexity clinical laboratory testing.

This test is a nucleic acid amplification test (NAAT), a reverse transcriptase polymerase chain reaction (RT-PCR) test, or a Centers for Disease Control-acceptable equivalent. The test is performed in a high complexity Clinical Laboratory Improvement Amendments-(CLIA) certified laboratory. The test is acceptable for SARS-CoV-2 diagnosis, surveillance, and travel within the [place] and to most countries. Please check with local testing authorities about requirements before travel.

The validation of bronchial specimens, tracheal aspirates, and sputum for this assay was developed and performance characteristics determined by [facility]. The validation of alternate specimen types has not been cleared or approved by the U.S. Food and Drug Administration (FDA). It has been determined that such clearance is not necessary. Influenza virus A RNA [Prese nce] in Specimen by FRANNIE with probe detection 07/13/2024 15:53:37 Negative Negative Final No Influenza A RNA detected by PCR (amplified probe) Influenza virus B RNA [Prese nce] in Specimen by FRANNIE with probe detection 07/13/2024 15:53:37 Negative Negative Final No Influenza B RNA detected by PCR (amplified probe) Respiratory syncytial virus RNA [Identifier] in Specimen by FRANNIE with probe detection 07/13/2024 15:53:37 Negative Negative Final No Respiratory Syncytial Vir us RNA detected by PCR (amplified probe) Performing Location LABORATORY [address] [facility] [address]
--- OUTSIDE RECORDS SUMMARY | 2024-07-15 02:04 | External Medical Summary | Summary of Care ---
Author Name Unknown Organization [facility] Address [address] [facility] [place] [address] Phone [phone] Care Team Providers Care Kiln Placer Name Role Phone Axel Lester MD Primary Care Provider [phone] Reason for Visit * Reason Comments Outpatient Testing Encounter Details Date Type Department Care Team (Late st Contact Info) Description 07/13/2024 3:40 PM EDT Laboratory Laboratory, [facility] [address] [place] [id number] [facility] [address] [place] [address] Lipid screening; Stage 3a chronic kidney disease; Malaise and fatigue; Screening for diabetes mellitus Allergies No known active allergiesdocumented as of this encounter (statuses as of 07/13/2024) Medications Medication Sig Dispensed Refills Start Date End Date Status omeprazole (PRILOSEC) 10 MG CPDR Take 1 Capsule by mouth in the morning. 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 08/13 Uric acid 8.9 GETS near-syncope with blood draw-should do lying down 08/13 Renal US WNL +stone & small cyst 08/13 Cr 1.5 stable 03/13 Cr 1.45. Stable. Glucose 94. CBC WNL 04/11 [facility] labs--Cr 1.5 TC 173, LDL 132, TG 106, HDL 31- Esophageal reflux 11/16/2008 04/16/2018 Asthma with severity to be determined 05/06/2005 11/14/2013 Overview: Mild intermittent. ICD-10 update of inactive term HTN, goal below 140/90 06/13/200407/07 Overview: 08/13 Microalb WNL. [facility]. Cr 1.5 03/13 Cr 1.45 documented [...] Description 07/18/2024 4:20 PM EDT Office Visit [facility] [address] [place] [address] Axel Lester MD [address] [place] [address] Pending Results Name Type Priority Associated Diagnoses [...] Additional history exists CKD HGB USE SMARTSET 66893 06/26/202406/26, 07/05/2020, 07/12/2019, Additional history exists CKD PHOS USE SMARTSET 12448 06/26/202405/31, 07/05/2020, 07/12/2019 Influenza Vaccine (FLU shot) [...] mellitus documented in this encounter Care Teams Kiln Placer Relationship Specialty Start Date End Date Axel Lester MD [address] [place] [address] PCP - General Family Medicine 07/12/19 documented as of this encounter
--- OUTSIDE RECORDS SUMMARY | 2024-07-15 02:05 | External Medical Summary | Summary of Care ---
Author Name Unknown Organization [facility] Address [address] [facility] [place] [address] Phone [phone] Care Team Providers Care Tree Farmer Name Role Phone Axel Lester MD Primary Care Provider [phone] [phone] Reason for Visit * Reason Onset Date Comments Advice 02/10/2024 Encounter Details Date Type Department Care Team (Late st Contact Info) Description 02/10/2024 Telephone Family Practice [facility] [address] [place] [address] Axel Lester MD [address] [place] [address] Advice Allergies No known active allergiesdocumented as of this encounter (statuses as of 02/12/2024) Medications Medication Sig Dispensed Refills Start Date End Date Status omeprazole (PRILOSEC) 10 MG CPDR Take 1 Capsule by mouth in the morning. 0 Active Nystatin-Triamcinolon e 152162-6.1 UNIT/GM-% External Cream (Mycolog) Apply topically to affected area 2 times a day . To affacted area for two weeks. 30 g 1 07/22/2022 Active Albuterol Sulfate HFA 108 (90 Base) MCG/ACT Inhalation Aerosol SolutionIndications:A sthma with severity to be determined INHALE 2 TO 4 PUFFS BY MOUTH EVERY 4 TO 6 HOURS NEEDED FOR SHORTNESS OF BREATH FOR WHEEZING 36 g 2 08/13/2022 Active Levocetirizine Dihydrochloride 5 MG Oral Tablet TAKE 1 TABLET BY MOUTH ONCE DAILY IN THE EVENING 90 Tablet 3 08/20/2023 Active Allopurinol 100 MG Oral Tablet (Zyloprim)Indications :Gouty arthropathy TAKE 2 TABLETS BY MOUTH IN THE MORNING 180 Tablet 2 11/03/2023 Active Nirmatrelvir&Ritonavi r 300/100 20 x 150 MG & 10 x 100MG Oral Tablet Therapy Pack (Paxlovid (300/100))Indications :Close exposure to COVID-19 virus,COVID-19 virus infection Take 2 pink tablets of Nirmatrelvir and 1 white tablet of Ritonavir two times a day by mouth. 30 Tablet 0 11/17/2023 Active Lisinopril 10 MG Oral Tablet (Prinivil) TAKE 1 TABLET BY MOUTH IN THE MORNING 90 Tablet 2 11/19/2023 Active Atenolol 50 MG Oral Tablet (Tenormin) Take 1 tablet by mouth once daily 90 Tablet 3 12/11/2023 Active Ozempic (0.25 or 0.5 MG/DOSE) 2 MG/3ML Solution Pen-injector (Semaglutide(0.25 or 0.5MG/DOS))Indication s:Super obese Inject 0.5 mg under the skin once a week. 3 mL 5 12/14/2023 Active Qvar RediHaler 40 MCG/ACT Inhalation Aerosol Breath Activated (Beclomethasone Diprop HFA)Indications:Gastr oesophageal reflux disease without esophagitis INHALE 2 PUFFS BY MOUTH TWICE DAILY 31.8 g 1 12/15/2023 Active documented as of this encounter (statuses as of 02/12/2024) Active Problems Problem Noted Date Diagnosed Date Stage 3a chronic kidney disease 10/08/2020 Overview: Per CKD protocol HTN, goal below 130/80 07/07/2018 Gastroesophageal reflux disease with esophagitis 04/16/2018 Chronic venous stasis dermatitis 07/02/2017 Gouty arthropathy 09/11/2016 Overview: 10/15 uric acid 5.9. 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 0 to 59.9 in adult 08/31/2017 07/16/2022 Overview: Per Obesity protocol #1 - Per Obesity Protocol, #19 Tear of lateral meniscus of right knee 01/19/2014 04/16/2018 Elevated serum creatinine 05/26/2013 Genetic Sleep Disorder Resea [facility] Other*[id number] 01/09/2012 06/26/2016 Sleep related hypoxia 01/09/20122015 Sleep apnea 08/13/2011 01/09/2012 Overview: 08/10-refer for study Routine medical exam 08/13/2011 016 Overview: NEEDS PCV23. 08/13 Uric acid 8.9 GETS near-syncope with blood draw-should do lying down 08/13 Renal US WNL +stone & small cyst 08/13 Cr 1.5 stable 03/13 Cr 1.45. Stable. Glucose 94. CBC WNL 04/11 [facility] labs--Cr 1.5 TC 173, LDL 132, TG 106, HDL 31- Esophageal reflux 11/16/2008 04/16/2018 Asthma with severity to be determined 05/06/2005 11/14/2013 Overview: Mild intermittent. ICD-10 update of inactive term HTN, goal below 140/90 06/13/200407/07 Overview: 08/13 Microalb WNL. [facility]. Cr 1.5 03/13 Cr 1.45 documented as of this encounter (statuses as of 02/12/2024) Immunizations Name Administration Dates Next Due COVID-19 [...] on file documented as of this encounter Miscellaneous Notes * Telephone Encounter - Axel Lester MD - 02/12/2024 9:27 AM EDT Yes I will let him know * Telephone Encounter - Lucina Pederson LPN - 02/12/2024 9:08 AM EDT Pt is NOT DM, so this will not get covered no matter how many times we try a PA. Change med? * Telephone Encounter - Sintia Paredes OSA - 02/10/2024 5:53 PM EDT Pamela faxed stating "Needs prior auth!!!!4th fax!!!" Regarding the ozempic pen script. Please advice pharmacy. documented in this encounter Plan of Treatment Health Maintenance Due Date Last Done Comments Pneumococcal Vaccine: Pediatrics (0 to 5 Years) and At-Risk Patients (6 to 64 Years) (1 of 2 - PCV) 1979 HIV Screening 1988 Hepatitis C Screening 1991 Hepatitis B (1 of 3 - 19+ 3-dose series) 1992 Colonoscopy 2018 Fecal Occult Blood Test 2018 Sigmoidoscopy 2018 Depression Screening 07/16/2022 07/16/2021 Zoster Vaccines (1 of 2) 2023 COVID-19 Vaccine ( - 2022- season) 2023 12/11/2020, 11/19/2020 Influenza Vaccine (FLU shot) (#1) 2023 08/27/2016, 08/30/2014, 09/30/2013, Additional history exists GFR 01/17/2024 07/17/2023, 05/01, 07/03/2021, Additional history exists DTaP,Tdap,and Td Vaccines (2 - Td or Tdap) 02/14/2024 02/13/2014 Albumin/Creatinine Ratio 06/26/2024 023, 07/05/2020, 07/07/2019, Additional history exists CKD HGB USE SMARTSET 55508 06/26/202406/26, 07/05/2020, 07/12/2019, Additional history exists CKD PHOS USE SMARTSET 08603 06/26/202405/31, 07/05/2020, 07/12/2019 Diabetes Screening 07/17/2026 07/17/2023, 0 05/26/2022, 07/03/2021, Additional history exists Cologuard 08/13/2026 08/13/2023, 090 05/2023, 08/06/2023 Colorectal Cancer Screening 08/13/2026 Lipid Panel 07/17/2028 07/17/2023, 05/01, 07/03/2021, Additional history exists GARDASIL-HPV IMMUNIZATION SERIES Aged Out No longer eligible based on patient's age to complete this topic MENINGOCOCCAL (MENACTRA/MENVEO) Aged Out No longer eligible based on patient's age to complete this topic documented as of this encounter Medical Devices Not on filedocumented as of this encounter Care Teams Tree Farmer Relationship Specialty Start Date End Date Axel Lester MD [address] [place] [address] PCP - General Family Medicine 07/12/19 documented as of this encounter
--- OUTSIDE RECORDS SUMMARY | 2024-07-15 02:05 | External Medical Summary ---
Author Name Unknown Address Unknown Organization [id number][place] [facility] [place] [address] [facility] [place] [address] Laboratory Report Ordering Provider Test Date Status BETTYE DOTSON 07/13/2024 15:40:18 Final Observation Date Value Abnormality Reference (Units ) Status Triglyceride 07/13/2024 15:40:18 240 Above high normal <=174 (mg/dL) Final Triglyceride Reference Range s (mg/dL):
<150 Acceptable
150-174 Borderline high
175-499 High
>=500 Very high Cholesterol 07/13/2024 15:40:18 168 <200 (mg /dL) Final Total Cholesterol Reference Ranges (mg/dL):
<200 Desirable
200-239 Borderline high
>=240 High HDL 07/13/2024 15:40:18 17 Below low normal >39 (mg/dL) Final HDL Cholesterol Reference Ra nges (mg/dL):
>=60 High (Desirable)
<50 Low (Undesirable) For Females
<40 Low (Undesirable) For Males NON-HDL CHOLESTEROL 07/13/2024 15:40:18 151 <=159 (mg/dL) Final Non-HDL Cholesterol Referenc e Range (mg/dL):
<100 Target level for high risk ASCVD patient
<130 Optimal for general population
130-159 Near optimal for general population
160-189 Borderline High
190-219 High
>=220 Very High LDL, (calculated) 07/13/2024 15:40:18 103 <= 129 (mg/dL) Final LDL Cholesterol Reference Ra nges (mg/dL):
<70 Target level for high risk ASCVD patient
<100 Optimal for general population
100-129 Near optimal for general population
130-159 Borderline high
160-189 High
>=190 Very high Performing Location [facility] [facility] [place] [address] [facility] [address]
--- OUTSIDE RECORDS SUMMARY | 2024-07-15 02:05 | External Medical Summary | Summary of Care ---
Author Name Unknown Organization [facility] Address [address] [facility] [place] [address] Phone [phone] Care Team Providers Care Para Professional Name Role Phone Mauri Wen MD Primary Care Provider [phone] [phone] Reason for Visit * Reason Comments eRx-Medication Refill Encounter Details Date Type Department Care Team (Late st Contact Info) Description 06/21/2024 Refill Family Practice [facility] [address] [facility] [place] [address] Mauri Wen MD [address] [facility] [place] [address] Gastroesophageal reflux disease without esophagitis Allergies No known active allergiesdocumented as of this encounter (statuses as of 06/22/2024) Medications Medication Sig Dispensed Refills Start Date End Date Status omeprazole (PRILOSEC) 10 MG CPDR Take 1 Capsule by mouth in the morning. Active Nystatin-Triamcinol one 568230-4.1 UNIT/GM-% External Cream (Mycolog) Apply topically to affected area 2 times a day . To affacted area for two weeks. 30 g 1 2 Active Albuterol Sulfate HFA 108 (90 Base) MCG/ACT Inhalation Aerosol SolutionIndications :Asthma with severity to be determined INHALE 2 TO 4 PUFFS BY MOUTH EVERY 4 TO 6 HOURS NEEDED FOR SHORTNESS OF BREATH FOR WHEEZING 36 g 2 09/14/202 2 Active Levocetirizine Dihydrochloride 5 MG Oral Tablet TAKE 1 TABLET BY MOUTH ONCE DAILY IN THE EVENING 90 Tablet 3 3 Active Allopurinol 100 MG Oral Tablet (Zyloprim)Indicatio ns:Gouty arthropathy TAKE 2 TABLETS BY MOUTH IN THE MORNING 180 Tablet 2 3 Active Nirmatrelvir&Ritona vir 300/100 20 x 150 MG & 10 x 100MG Oral Tablet Therapy Pack (Paxlovid (300/100))Indicatio ns:Close exposure to COVID-19 virus,COVID-19 virus infection Take 2 pink tablets of Nirmatrelvir and 1 white tablet of Ritonavir two times a day by mouth. 30 Tablet 3 Active Lisinopril 10 MG Oral Tablet (Prinivil) TAKE 1 TABLET BY MOUTH IN THE MORNING 90 Tablet 2 3 Active Atenolol 50 MG Oral Tablet (Tenormin) Take 1 tablet by mouth once daily 90 Tablet 3 4 Active Ozempic (0.25 or 0.5 MG/DOSE) 2 MG/3ML Solution Pen-injector (Semaglutide(0.25 or 0.5MG/DOS))Indicati ons:Super obese Inject 0.5 mg under the skin once a week. 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 08/13 Uric acid 8.9 GETS near-syncope with blood draw-should do lying down 08/13 Renal US WNL +stone & small cyst 08/13 Cr 1.5 stable 03/13 Cr 1.45. Stable. Glucose 94. CBC WNL 04/11 [facility] labs--Cr 1.5 TC 173, LDL 132, TG 106, HDL 31- Esophageal reflux 11/16/2008 04/16/2018 Asthma with severity to be determined 05/06/2005 11/14/2013 Overview: Mild intermittent. ICD-10 update of inactive term HTN, goal below 140/90 06/13/200407/07 Overview: 08/13 Microalb WNL. [facility]. Cr 1.5 03/13 Cr 1.45 documented as of this encounter (statuses as of 06/22/2024) Immunizations Name Administration Dates Next Due COVID-19 mRNA, LNP-s, No Pre serve, 2-Dose Series (RFMarq) 12/11/2020,11/19/2020 Seasonal Influenza, Split, I IV3, With [...] encounter Miscellaneous Notes * Telephone Encounter - Prem Gonzalez [facility] - 06/22/2024 10:00 AM EDT Signed Prescriptions: Disp Refills Qvar RediHaler 40 MCG/ACT Inhalation Aeros*31.8 g 1 Sig: INHALE 2 PUFFS TWICE DAILYAuthorizing Provider: MAURI WEN User: PREM GONZALEZ--- documented in this encounter Plan of Treatment Upcoming Encounters Date Type Department Care Team (Late st Contact Info) Description 07/18/2024 4:20 PM EDT Office Visit Family [facility] [address] [place] [address] Mauri Wen MD [address] [place] [address] Health Maintenance Due Date Last Done Comments [...] Vaccines (1 of 2) 2023 COVID-19 Vaccine (3 - 2022- season) 2023 12/11/2020, 11/19/2020 GFR 01/17/2024 07/17/2023, 05/01, 07/03/2021, Additional history exists DTaP,Tdap,and Td Vaccines (2 - Td or Tdap) 02/14/2024 02/13/2014 Albumin/Creatinine Ratio 06/26/2024 023, 07/05/2020, 07/07/2019, Additional history exists CKD HGB USE SMARTSET 94194 06/26/202406/26, 07/05/2020, 07/12/2019, Additional history exists CKD PHOS USE SMARTSET 22101 06/26/202405/31, 07/05/2020, 07/12/2019 Influenza Vaccine (FLU shot) [...] as of this encounter Visit Diagnoses Diagnosis Gastroesophageal reflux disease without esophagitis Esophageal reflux documented in this encounter Care Teams Para Professional Relationship Specialty Start Date End Date Mauri Wen MD [address] [place] [address] PCP - General Family Medicine 07/12/19 documented as of this encounter
--- OUTSIDE RECORDS SUMMARY | 2024-07-15 02:05 | External Medical Summary ---
Author Name Unknown Address Unknown Organization K01:[facility] [place] [address] [facility] [place] [address] Laboratory Report Ordering Provider Test Date Status BETTYE DOTSON 07/13/2024 15:40:18 Final Observation Date Value Abnormality Reference (Units ) Status WBC, Total 07/13/2024 15:40:18 14.06 Above high normal 4 .00-10.80 (K/uL) Final RBC 07/13/2024 15:40:18 5.07 4.50-5.25 (M/uL) Final Hemoglobin 07/13/2024 15:40:18 15.6 14.0-16.8 (g/dL) Final Anemia reflex testing trigge rs on a HGB < 12.0 for Females and HGB < 13.0 for Males in accordance with the WHO Anemia Guidelines
Anemia reflex testing triggers on a HGB < 12.0 for Females and HGB < 13.0 for Males in accordance with the WHO Anemia Guidelines HCT 07/13/2024 15:40:18 46.6 40.0-48.4 (%) Final MCV 07/13/2024 15:40:18 91.9 82.0-99.5 (fL) Final MCH 07/13/2024 15:40:18 30.8 27.0-34.0 (pg) Final MCHC 07/13/2024 15:40:18 33.5 32.0-36.0 (g/dL) Final RDW 07/13/2024 15:40:18 13.3 11.5-15.5 (%) Final Platelets 07/13/2024 15:40:18 176 140-400 (K /uL) Final MPV 07/13/2024 15:40:18 11.9 6.6-11.1 ( fL) Final Nucleated erythrocytes/100 leukocytes [Ratio] in Blood by Automated count 07/13/2024 15:40:18 0 <=0 (/100 WBCs) Jacquelyn hopkins Performing Location [facility]ORY [facility] – [place] - [address] [facility] [address]
--- OUTSIDE RECORDS SUMMARY | 2024-07-15 02:05 | External Medical Summary ---
Author Name Unknown Address Unknown Organization K01[place] [facility] [place] [address] [place] [address] Laboratory Report Ordering Provider Test Date Status BETTYE DOTSON 07/13/2024 15:40:18 Final Observation Date Value Abnormality Reference (Units ) Status Borrelia burgdorferi IgG and IgM [Interpretation] in Serum by Immunoassay 07/13/2024 15:40:18 Negative Negative Final Performing Location LABORATORY [facility] - [address] [place] [address]
--- OUTSIDE RECORDS SUMMARY | 2024-07-15 02:05 | External Medical Summary | Summary of Care ---
Author Name Unknown Organization [facility] Address [address] [facility] [place] [address] Phone [phone] Care Team Providers Care Reconciliation Coordinator Name Role Phone Axel Lester MD Primary Care Provider [phone] Reason for Visit * Reason Onset Date Comments Medication Refill 01/16/2024 Encounter Details Date Type Department Care Team (Late st Contact Info) Description 01/16/2024 Refill Family Practice [facility] [address] [place] [address] Axel Lester MD [address] [facility] [place] [id number] Super obese Allergies No known active allergiesdocumented as of this encounter (statuses as of 01/17/2024) Medications Medication Sig Dispensed Refills Start Date End Date Status omeprazole (PRILOSEC) 10 MG CPDR Take 1 Capsule by mouth in the morning. 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 08/13 Uric acid 8.9 GETS near-syncope with blood draw-should do lying down 08/13 Renal US WNL +stone & small cyst 08/13 Cr 1.5 stable 03/13 Cr 1.45. Stable. Glucose 94. CBC WNL 04/11 [facility] labs--Cr 1.5 TC 173, LDL 132, TG 106, HDL 31- Esophageal reflux 11/16/2008 04/16/2018 Asthma with severity to be determined 05/06/2005 11/14/2013 Overview: Mild intermittent. ICD-10 update of inactive term HTN, goal below 140/90 06/13/200407/07 Overview: 08/13 Microalb WNL. [facility]. Cr 1.5 03/13 Cr 1.45 documented as of this encounter (statuses as of 01/17/2024) Immunizations Name Administration Dates Next Due COVID-19 [...] encounter Miscellaneous Notes * Telephone Encounter - Phyllis Bro [facility] - 01/17/2024 12:30 PM EST Refused Prescriptions: Disp Refills Ozempic (0.25 or 0.5 MG/DOSE) 2 MG/3ML Roxanna*3 mL 5 Sig: Inject 0.5 mg under the skin once a week.Refused By: PHYLLIS BRO for Refusal: Too soon-------- documented in this encounter Plan of Treatment [...] Vaccines (1 of 2) 2023 COVID-19 Vaccine (2022- season) 2023 12/11/2020, 11/19/2020 Influenza Vaccine (FLU shot) (#1) 2023 08/27/2016, 08/30/2014, 09/30/2013, Additional history exists GFR 01/17/2024 07/17/2023, 05/01, 07/03/2021, Additional history exists DTaP,Tdap,and Td Vaccines (2 - Td or Tdap) 02/14/2024 02/13/2014 Albumin/Creatinine Ratio 06/26/2024 023, 07/05/2020, 07/07/2019, Additional history exists CKD HGB USE SMARTSET 37963 06/26/202406/26, 07/05/2020, 07/12/2019, Additional history exists CKD PHOS USE SMARTSET 69290 06/26/202405/31, 07/05/2020, 07/12/2019 Diabetes Screening 07/17/2026 07/17/2023, [...] as of this encounter Visit Diagnoses Diagnosis Super obese Morbid obesity documented in this encounter Care Teams Reconciliation Coordinator Relationship Specialty Start Date End Date Axel Lester MD [address] [place] [address] PCP - General Family Medicine 07/12/19 documented as of this encounter
--- OUTSIDE RECORDS SUMMARY | 2024-07-15 02:05 | External Medical Summary | Summary of Care ---
Author Name Unknown Organization [facility] Address [address] [facility] [place] [address] Phone [phone] Care Team Providers Care It Security Architect Name Role Phone Axel Lester MD Primary Care Provider [phone] [phone] Reason for Visit * Reason Onset Date Comments Advice 02/03/2024 Encounter Details Date Type Department Care Team (Late st Contact Info) Description 02/03/[address] [facility] [address] [facility] [place] [address] Axle Lester MD [address] [place] [address] Advice Allergies No known active allergiesdocumented as of this encounter (statuses as of 02/09/2024) Medications Medication Sig Dispensed Refills Start Date End Date Status omeprazole (PRILOSEC) 10 MG CPDR Take 1 Capsule by mouth in the morning. 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 08/13 Uric acid 8.9 GETS near-syncope with blood draw-should do lying down 08/13 Renal US WNL +stone & small cyst 08/13 Cr 1.5 stable 03/13 Cr 1.45. Stable. Glucose 94. CBC WNL 04/11 [facility] labs--Cr 1.5 TC 173, LDL 132, TG 106, HDL 31- Esophageal reflux 11/16/2008 04/16/2018 Asthma with severity to be determined 05/06/2005 11/14/2013 Overview: Mild intermittent. ICD-10 update of inactive term HTN, goal below 140/90 06/13/200407/07 Overview: 08/13 Microalb WNL. [facility]. Cr 1.5 03/13 Cr 1.45 documented as of this encounter (statuses as of 02/09/2024) Immunizations Name Administration Dates Next Due COVID-19 [...] encounter Miscellaneous Notes * Telephone Encounter - Kesha Zepeda LPN - 02/04/2024 9:30 AM EST Ozempic not covered for "super obese". * Telephone Encounter - Sintia Paredes OSA - 02/03/2024 4:47 PM EST [facility] faxed stating "this needs a prior auth" regarding the ozempic script. Please advice pharmacy/patient. documented in this encounter Plan of Treatment [...] Vaccines (1 of 2) 2023 COVID-19 Vaccine (2022-24 season) 2023 12/11/2020, 11/19/2020 Influenza Vaccine (FLU shot) (#1) 2023 08/27/2016, 08/30/2014, 09/30/2013, Additional history exists GFR 01/17/2024 07/17/2023, 05/01, 07/03/2021, Additional history exists DTaP,Tdap,and Td Vaccines (2 - Td or Tdap) 02/14/2024 02/13/2014 Albumin/Creatinine Ratio 06/26/2024 023, 07/05/2020, 07/07/2019, Additional history exists CKD HGB USE SMARTSET 94475 06/26/202406/26, 07/05/2020, 07/12/2019, Additional history exists CKD PHOS USE SMARTSET 32943 06/26/2024 07/2 06/2023, 07/05/2020, 07/12/2019 Diabetes Screening 07/17/2026 07/17/2023, 0 [...] filedocumented as of this encounter Care Teams It Security Architect Relationship Specialty Start Date End Date Axel Lester MD [address] [place] [address] PCP - General Family Medicine 07/12/19 documented as of this encounter
--- OUTSIDE RECORDS SUMMARY | 2024-07-15 02:05 | External Medical Summary ---
Author Name Unknown Address Unknown Organization [id number]:[facility] [place] [facility] [place] [address] [facility] [address] Laboratory Report Ordering Provider Test Date Status BETTYE DOTSON 07/13/2024 15:40:18 Final Observation Date Value Abnormality Reference (Units ) Status HbA1C 07/13/2024 15:40:18 5.8 Above high normal 4. 0-5.6 (%) Final The use of HbA1c to monitor glycemic status is based on normal hemoglobin and HbA composition. This test should not be used in patients with abnormal hemoglobin that affects the half life of the red blood cell or the in vivo glycation rates. Glucose, estimated average 07/13/2024 15:40:18 120 <126 (mg/dL) Final Performing Location [facility] [place] [facility] [place] [address] [facility] [address]
--- NOTE | 2024-07-15 02:54 | Communication Note ---
Date of Service: July 15, 2024
[2024-07-15 04:00] LABS: Basophils # (auto) 0.04 K/uL (0.00-0.20); Basophils % (auto) 0.4 %; Eosinophils # (auto) 0.13 K/uL (0.00-0.50); Eosinophils % (auto) 1.4 %; Hematocrit (blood only) 39.3 % (42.0-52.0); Hemoglobin 13.6 g/dl (14.0-18.0); Immature Granulocytes # (auto) 0.09 K/uL (0.01-0.20); Immature Granulocytes % (auto) 0.9 %; Lymphocytes # (auto) 1.51 K/uL (1.20-3.40); Lymphocytes % (auto) 15.8 %; Mean Corpuscular Hemoglobin 30.6 pg (25.0-34.0); Mean Corpuscular Hgb Conc 34.6 g/dL (32.0-36.0); Mean Corpuscular Volume 88.3 fL (80.0-100.0); Mean Platelet Volume 11.5 fL (9.4-12.4); Monocytes # (auto) 1.05 K/uL (0.11-0.59); Neutrophils # (auto) 6.71 K/uL (1.40-6.50); Neutrophils % (auto) 70.5 %; Platelet Count 143 K/uL (130-400); RDW Coefficient of Variation 13.2 % (11.5-14.5); Red Blood Count 4.45 M/uL (4.70-6.10); White Blood Count 9.53 K/ul (4.8-10.8)
[2024-07-15] MEDS: HEPARIN SODIUM/DEXTROSE 25,000 UNITS/500 ML BAG IV SCH (04:02)
[2024-07-15] MEDS: Heparin IV Adult Wt-Based Standard *NO* INITIAL Bolus Protocol IV STA (04:03)
[2024-07-15 04:06] LABS: Partial Thromboplastin Time 28 Seconds (21-31)
[2024-07-15 04:18] LABS: BUN Creatinine Ratio 25.2 (10-20); Calcium 7.8 mg/dl (8.6-10.3); Creatinine Clr Calc Pharmacy 41.3 ml/min; Est GFR (African American) 23.5 ml/min; Est GFR (Non-African American) 20.3 ml/min; Potassium 3.5 mmol/L (3.5-5.1)
[2024-07-15 04:33] LABS: Troponin I High Sensitivity 66.7 pg/ml (0-20)
[2024-07-15 04:35] LABS: Thyroid Stimulating Hormone 0.842 uIu/ml (0.300-4.500)
--- NOTE | 2024-07-15 07:40 | XRay Report ---
XR chest 1V portable HISTORY: hyponatremia COMPARISON: Abdomen and pelvis CT 07/14/2024. FINDINGS: No pneumothorax. The heart is mildly enlarged. Right lung is clear. Airspace opacity within the left mid to lower lung zone consistent with a pneumonia. No evidence for pulmonary edema. No acu te fractures. IMPRESSION: Left lung airspace opacity consistent with a pneumonia. 1-2 month chest x-ray follow-up recommended t o ensure resolution. ACT 112: Negative or not required by law. Electronically signed by: Arjun Torres M.D. 07/15/2024 7:39 AM
[2024-07-15] MEDS: FLUTICASONE FUROATE 100MCG 14 PUFFS/INHALER INH SCH (08:41)
[2024-07-15] MEDS: allopurinoL 100 MG TAB PO SCH (08:42)
[2024-07-15] MEDS: ATENOLOL 50 MG TABLET PO SCH (08:42)
[2024-07-15] MEDS: POTASSIUM CHLORIDE PWD 20 MEQ PACK PO STA (08:53)
--- OUTSIDE RECORDS SUMMARY | 2024-07-15 09:12 | External Medical Summary | Summary of Care ---
Author Name Unknown Organization [facility] Address [address] [facility] [place] [address] Phone [phone] Care Team Providers Care Inspector Packager Name Role Phone Axel Lester MD Primary Care Provider [phone] Reason for Visit * Reason Onset Date Comments Test Results 07/14/2024 Encounter Details Date Type Department Care Team (Late st Contact Info) Description 07/14/2024 Telephone Family Practice [facility] [address] [place] [address] Axel Lester MD [address] [facility] [place] [id number] Test Results Allergies No known active allergiesdocumented as of this encounter (statuses as of 07/14/2024) Medications Medication Sig Dispensed Refills Start Date End Date Status omeprazole (PRILOSEC) 10 MG CPDR Take 1 Capsule by mouth in the morning. Active Nystatin-Triamcinolon e 799467-3.1 UNIT/GM-% External Cream (Mycolog) Apply topically to [...] Until gone.. 20 Capsule 07/13/2024 07/23/2024 Active guaiFENesin-Codeine 100-10 MG/5ML Oral Syrup (Robitussin AC)Indications:Walkin g pneumonia Take 5 mL by mouth every 4 hours as needed for Cough. 120 mL 07/13/2024 Active documented as of this encounter (statuses as of 07/14/2024) Active Problems Problem Noted Date Diagnosed Date [...] AHI 67 (pre testing), CPAP 11 cwp [employer] Super obese 05/14/2010 Overview: Per Obesity Protocol, #19 documented as of this encounter (statuses as of 07/14/2024) Resolved Problems Problem Noted Date Diagnosed Date [...] rhinitis 04/18/2013 07/12/2024 Genetic Sleep Disorder [facility] Other*[id number] 01/09/2012 06/26/2016 Sleep related hypoxia 01/09/20122015 Sleep apnea 08/13/2011 01/09/2012 Overview: 08/10-refer for study Routine medical exam 08/13/2011 016 Overview: NEEDS PCV23. 08/13 Uric acid 8.9 GETS near-syncope with blood draw-should do lying down 08/13 Renal US WNL +stone & small cyst 08/13 Cr 1.5 stable 03/13 Cr 1.45. Stable. Glucose 94. CBC WNL 04/11 [facility] labs--Cr 1.5 TC 173, LDL 132, TG 106, HDL 31- Esophageal reflux 11/16/2008 04/16/2018 Asthma with severity to be determined 05/06/2005 11/14/2013 Overview: Mild intermittent. ICD-10 update of inactive term HTN, goal below 140/90 06/13/200407/07 Overview: 08/13 Microalb WNL. [facility]. Cr 1.5 03/13 Cr 1.45 documented as of this encounter (statuses as of 07/14/2024) Immunizations Name Administration Dates Next Due COVID-19 [...] Telephone Encounter - Kesha Zepeda LPN - 07/14/2024 1:29 PM EDT Called and spoke with patient. Notified of below. Patient will drive self to ER. Called [facility] ER-report given to Anais Rome. Results printed and faxed to ER * Telephone Encounter - Axel Lester MD - 07/14/2024 1:12 PM EDT Call patient now and have him go to ER. He is in kidney failure and will need to be evaluated. documented in this encounter Plan of Treatment Upcoming Encounters Date Type Department Care Team (Late st Contact Info) Description 07/18/2024 4:20 PM EDT Office Visit [facility] [address] [place] [address] Axel Lester MD [address] [place] [id number] Health Maintenance Due Date Last Done Comments [...] (3 - 2022- season) 2023 12/11/2020, 11/19/2020 DTaP,Tdap,and Td Vaccines (2 - Td or Tdap) 02/14/2024 02/13/2014 Albumin/Creatinine Ratio 06/26/2024 023, 07/05/2020, 07/07/2019, Additional history exists CKD PHOS USE SMARTSET 05856 06/26/2024 07/06/2023, 07/05/2020, 07/12/2019 Influenza Vaccine (FLU shot) (#1) 2024 08/27/2016, 08/30/2014, 09/30/2013, Additional history exists GFR 01/13/2025 07/13/2024, 06/30, 05/26/2022, Additional history exists CKD HGB USE SMARTSET 00307 07/13/202507/13, 07/13/2024, 06/26/2023, Additional history exists Cologuard 08/13/2026 08/13/2023, 09/0 05/2023, 08/06/2023 Colorectal Cancer Screening 08/13/2026 Diabetes Screening 07/13/2027 07/13/2024, 0 07/13/2024, 07/17/2023, Additional history exists Lipid Panel 07/13/2029 07/13/2024, 06/30, 05/26/2022, Additional history exists HPV (Gardasil) Vaccine Aged Out No lo nger eligible based on patient's age to complete this topic MENINGOCOCCAL (MENACTRA/MENVEO) Aged Out No longer eligible based on patient's age to complete this topic documented as of this encounter Medical Devices Not on filedocumented as of this encounter Care Teams Inspector Packager Relationship Specialty Start Date End Date Axel Lester MD [address] [facility] [place] [address] PCP - General Family Medicine 07/12/19 documented as of this encounter
--- NOTE | 2024-07-15 09:56 | Cardiology Consultation ---
Date of Consultation July 15, 2024 Assessment & Plan (1) Pneumonia involving left lung: (2) Atrial flutter: (3) AYLIN (acute kidney injury): (4) JAZMIN (obstructive sleep apnea): Plan Left lung pneumonia. As per Hospitalist. Acute on chronic renal dysfunction. As per Nephrology/Hospitalist. Atrial flutter with rapid ventricular response - Duration unknown - ? symptomatic - [id number] Score 2 points (Hypertension history, mild aortic atherosclerosis observed on the July 14, 2024 CT abdomen/pelvis) - Discontinue Atenolol 50 mg/day - Initiate metoprolol succinate 75 mg twice per day - Heparin to long-term anticoagulation, probable with apixaban - Possible future direct current cardioversion discussed with patient and . Supervising Physician Co-Signing Physician Notes Patient seen and examined, chart reviewed. Full assessment and plan as outlined above. Care and management discussed in detail with advanced provider and personally endorsed 49-year-old male with hypertension, diabetes mellitus, morbid obesity with obstructive sleep apnea presents for acute renal failure and pneumonia. Found to be in atrial flutter with rapid response. Patient unaware of tachyarrhythmias. No syncope or near syncope Plan as above control heart rate and initiate anticoagulation. [id number] 2 score of at least 2. Discussed all other options including future cardioversion. Currently minimally symptomatic from a cardiac standpoint. Overall systolic function hyperdynamic History of Present Illness Reason for Consultation: Atrial flutter Requesting Physician: Dr. Arben Vázquez DO Attending Physician: Arben Vázquez DO History of Present Illness Patient is a 49-year-old male who was in his usual state of health until approximately 3 weeks ago. At that time he began to experience a cough and sore throat, sinus pain, headache, "my hair follicles hurt," decreased appetite. Patient notes seeing his PCP earlier this week with laboratory work revealing acute on chronic renal dysfunction, creatinine 4.1 mg/deciliter. Patient referred to the ER where imaging revealed a left lung airspace opacity consistent with pneumonia. EKG on presentation revealed atrial flutter with a ventricular rate of 109 bpm, variable AV block. QTc 444 ms. High-sensitivity troponin elevated 113.5 then 66.7 pg/mL. Patient denies prior cardiac history. No history of CAD, [place], CHF, arrhythmia, heart murmur, rheumatic fever, or scarlet fever. No chest pain. No palpitations. No orthopnea or PND, CPAP utilized QHS. Edema is minimal in the AM, progressing throughout the day. No near syncope or syncope. No epistaxis, hemoptysis, melena, hematochezia, or hematuria. Past Medical and Surgical History Hypertension Stage III chronic kidney disease Asthma Obstructive sleep apnea, CPAP therapy Dyslipidemia Gout GERD Fatty liver Chronic venous stasis dermatitis Tonsillectomy as a child Family History: Father is alive with atrial fibrillation. Uncle with atrial fib rillation. Mother passed with an unusual cancer. 1 brother without cardiac issues. Social History: Never smoker. Never smokeless tobacco user. Social alcohol only. No illegal drug use. . 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 Allergies Allergy/AdvReac Type Severity Reaction Status Date / Time No Known Allergies Allergy Unverified 07/14/24 19:16 Home Medications Medication Instructions Recorded Confirmed Type albuterol sulfate 90 mcg/actuation 2 puff inhalation Q4 PRN Shortness 07/14/24 07/14/24 History aerosol inhaler Of Breath Or Wheezing allopurinol 100 mg tablet 200 mg PO QPM 07/14/24 07/14/24 History atenolol 50 mg tablet 50 mg PO QPM 07/14/24 07/14/24 History beclomethasone dipropionate 40 2 inh inhalation BID 07/14/24 07/14/24 History mcg/actuation HFA breath activated aerosol (Qvar RediHaler) codeine 10 mg-guaifenesin 100 mg/5 0 ml PO DIRECTED PRN Cough 07/14/24 07/14/24 History mL oral liquid doxycycline hyclate 100 mg capsule 100 mg PO BID 07/14/24 07/14/24 History famotidine 20 mg tablet 20 mg PO HS 07/14/24 07/14/24 History levocetirizine 5 mg tablet 5 mg PO QPM 07/14/24 07/14/24 History lisinopril 10 mg tablet 10 mg PO QPM 07/14/24 07/14/24 History Patient History Medical History No pertinent family history Gout HTN (hypertension) CKD (chronic kidney disease) stage 3, GFR 30-59 ml/min Asthma (08/12/13) Heart disease (08/12/13) Surgical History No pertinent past surgical history Social History Smoking Status: Never smoker Second Hand Exposure: No; Do You Dip or Chew Tobacco: No; Tobacco Cessation Education Requested by Patient: No Hx Alcohol Use: No Hx Substance Use: No Preferred Language: Danish Communication Ability: Effective Instantizer Operator Required: No Beliefs That Will Affect Care: None Current Living Situation: Spouse Other Information That Helps Us Care for You: No Feels Safe at Home: Yes Safety Concerns: Feels Safe At This Time Assistive Devices: CPAP Review of Systems Review of Systems: Complete Review of Systems is as stated above, negative, or noncontributory. Physical Exam Physical Exam: Examined in a bedside chair General: A&Ox3. NAD. HENT: Normocephalic. Atraumatic. Eyes: PER. Conjunctiva pink, sclera clear. Neck: No overt JVD. No carotid bruits. Heart: Irregularly irregular, 100 bpm. No murmur. No rub. Lungs: Clear to auscultation. Abdomen: +BS. Soft. Nontender. No masses or organomegaly. Extremities: Stasis changes, mid to distal left nunes. Minimal edema. No clubbing. No cyanosis Limited neurological examination is without focal deficits. Pulses: radial=2/4, posterior tibial=1/4. Results & Data Vital Signs (Past 12 Hours) Vital Signs Temp Pulse Pulse Resp BP Pulse Ox O2 Del Method 07/15/24 08:37 36.4 C L 76 18 122/83 95 Room Air 07/15/24 03:00 36.6 C 101 H 19 113/73 95 Room Air 07/14/24 22:45 107 H 14 93 07/14/24 22:00 Room Air, CPAP 07/14/24 21:57 105 H FiO2 07/15/24 08:37 07/15/24 03:00 07/14/24 22:45 21 07/14/24 22:00 07/14/24 21:57 Laboratory Results Cardiac Enzymes 07/14/24 07/15/24 Range/Units Unknown 03:41 AST 231 H (13-39) U/L Troponin I High Sens 113.5 H* 66.7 H* D (0-20) pg/ml Coagulation 07/14/24 07/14/24 07/15/24 Range/Units 15:52 Unknown 03:41 PT 12.2 H Cancelled (9.0-12.0) Seconds APTT 29 Cancelled 28 (21-31) Seconds CBC 07/14/24 07/15/24 Range/Units Unknown 03:41 WBC 14.26 H 9.53 (4.8-10.8) K/ul RBC 4.86 4.45 L (4.70-6.10) M/uL Hgb 15.1 13.6 L (14.0-18.0) g/dl Hct 42.4 39.3 L (42.0-52.0) % Plt Count 202 143 (130-400) K/uL Neut # (Auto) 10.10 H 6.71 H (1.40-6.50) K/uL Lymph # (Auto) 1.96 1.51 (1.20-3.40) K/uL [place] # (Auto) 1.89 H 1.05 H (0.11-0.59) K/uL Eos # (Auto) 0.13 0.13 (0.00-0.50) K/uL Baso # (Auto) 0.06 0.04 (0.00-0.20) K/uL Comprehensive Metabolic Panel 07/14/24 07/15/24 Range/Units Unknown 03:41 Sodium 128 L 130 L (136-145) mmol/L Potassium 4.0 3.5 (3.5-5.1) mmol/L Chloride 93 L 97 L (98-107) mmol/L Carbon Dioxide 21 21 (21-32) mmol/L BUN 77 H 84 H (6-23) mg/dl Creatinine 3.45 H 3.33 H (0.6-1.4) mg/dl Glucose 120 H 122 H (70-99(Fasting)) mg/dl Calcium 8.4 L 7.8 L (8.6-10.3) mg/dl AST 231 H (13-39) U/L ALT 150 H (7-52) U/L Alkaline Phosphatase 61 (34-104) U/L Total Protein 7.0 (6.0-8.3) gm/dl Albumin 3.2 L (3.4-5.0) gm/dl Intake and Output 07/14/24 07/15/24 07/15/24 22:59 06:59 14:59 Intake Total 1605 / 2305 700 / 2305 1122.667 / 1122.667 Balance 1605 / 2305 700 / 2305 1122.667 / 1122.667 Intake: IV 1605 / 1605 1122.667 / 1122.667 Heparin Sodium/Dextrose 25,000 122.667 / 122.667 units In 500 ml @ 2,000 UNITS/ HR 40 mls/hr IV .[id number] ALY Rx #:[id number] Plasma-Lyte A 1,000 ml @ 100 1000 / 1000 mls/hr IV .Q10H ALY Rx#: [id number] Sodium Chloride 0.9% 1,000 ml @ 1000 / 1000 999 mls/hr IV .Q1H1M ONE Rx#: [id number] Vancomycin HCl 2,750 mg In 555 / 555 Sodium Chloride 0.9% 500 ml @ 200 mls/hr IV NOW ONE Rx#: [id number] cefTRIAXone SODIUM 2,000 mg In 50 / 50 50 ml @ 100 mls/hr IV NOW STA Rx#:[id number] Oral 700 / 700 Other: # Unmeasured Voids 1 Weight 172.2 kg 172.2 kg Weight Measurement Method Standing Scale Standing Scale Diagnostic Findings July 15, 2024 TTE Interpretation Summary ([facility], Dr. Spicer): Technically difficult. Atrial flutter with elevated ventricular rate. Normal size LV. Moderate concentric LVH. Normal LV wall motion. EF 65 to 70%. Mildly dilated left atrium. No significant valvular abnormalities. 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
[2024-07-15 10:17] LABS: ANTI-Xa, UFH(UnfractionatedHep 0.38 IU/ml (0.3-0.7)
--- NOTE | 2024-07-15 11:05 | Nephrology Consultation ---
Date of Consultation July 15, 2024 Assessment & Plan (1) AYLIN (acute kidney injury): Patient with acute kidney injury due to ischemic ATN in setting of pneumonia. His blood pressure was low yesterday. He has CKD stage III with baseline creatinine of 1.5. Admission creatinine of 4 downtrending to 3.3 today. He is making urine. Recommend strict input output. Continue Plasma-Lyte at 100/h. Avoid hypotension. Renally dose medications for current eGFR. Avoid contrast. (2) Pneumonia involving left lung: Patient is getting Rocephin and doxycycline per primary team. History of Present Illness Reason for Consultation: Acute kidney injury Requesting Physician: Arben Vázquez DO Attending Physician: Arben Vázquez DO History of Present Illness This is a 49-year-old male with history of hypertension, obesity, obstructive sleep apnea on CPAP, CKD stage III baseline creatinine 1.5, gout and fatty liver who was admitted with acute kidney injury creatinine of 4.1 on outpatient labs by the PCP. Patient has been unwell for several days with pain and weakness. He denied NSAID use. He denies shortness of breath but has been having a cough. Chest x-ray showed left opacity consistent with pneumonia. He has been treated with Rocephin and doxycycline. He feels better today. Legs are swelling. Patient also found to be in a flutter. Blood pressure was low in systolic in the 90s yesterday but has improved today. CT abdomen showed no hydronephrosis. Sara was at the bedside. Allergies Allergy/AdvReac Type Severity Reaction Status Date / Time No Known Allergies Allergy Unverified 07/14/24 19:16 Home Medications Medication Instructions Recorded Confirmed Type albuterol sulfate 90 mcg/actuation 2 puff inhalation Q4 PRN Shortness 07/14/24 07/14/24 History aerosol inhaler Of Breath Or Wheezing allopurinol 100 mg tablet 200 mg PO QPM 07/14/24 07/14/24 History atenolol 50 mg tablet 50 mg PO QPM 07/14/24 07/14/24 History beclomethasone dipropionate 40 2 inh inhalation BID 07/14/24 07/14/24 History mcg/actuation HFA breath activated aerosol (Qvar RediHaler) codeine 10 mg-guaifenesin 100 mg/5 0 ml PO DIRECTED PRN Cough 07/14/24 07/14/24 History mL oral liquid doxycycline hyclate 100 mg capsule 100 mg PO BID 07/14/24 07/14/24 History famotidine 20 mg tablet 20 mg PO HS 07/14/24 07/14/24 History levocetirizine 5 mg tablet 5 mg PO QPM 07/14/24 07/14/24 History lisinopril 10 mg tablet 10 mg PO QPM 07/14/24 07/14/24 History Patient History Medical History No pertinent family history Gout HTN (hypertension) CKD (chronic kidney disease) stage 3, GFR 30-59 ml/min Asthma (08/12/13) Heart disease (08/12/13) Surgical History No pertinent past surgical history Social History Smoking Status: Never smoker Second Hand Exposure: No; Do You Dip or Chew Tobacco: No; Tobacco Cessation Education Requested by Patient: No Hx Alcohol Use: No Hx Substance Use: No Preferred Language: Korean Communication Ability: Effective Errand Runner Required: No Beliefs That Will Affect Care: None Current Living Situation: Spouse Other Information That Helps Us Care for You: No Feels Safe at Home: Yes Safety Concerns: Feels Safe At This Time Assistive Devices: None Review of Systems 2 Review of Systems: All other systems were reviewed and negative except as noted in HPI Physical Exam 2 Physical Exam: General exam: Appears comfortable, no acute distress HEENT: Pupils are equal and reactive to light Neck: No JVD, neck is supple trachea is midline Respiratory system: Clear breath sounds bilaterally. Gastrointestinal: Abdomen is soft, non distended, non tender, bowel sounds are present CVS: Regular rate and rhythm. No murmurs, rubs or gallops Musculoskeletal: No joint or muscle tenderness Extremities: Non tender, 1+ edema, peripheral pulses are present Neuro: Oriented, no tremors, no focal neurological deficits Skin: No rashes Results & Data Vital Signs (Past 12 Hours) Vital Signs Temp Pulse Resp BP Pulse Ox O2 Del Method 07/15/24 08:37 36.4 C L 76 18 122/83 95 Room Air 07/15/24 03:00 36.6 C 101 H 19 113/73 95 Room Air Laboratory Results 07/15/24 03:41 07/14/24 07/15/24 Unknown 03:41 WBC 14.26 H 9.53 RBC 4.86 4.45 L MCV 87.2 88.3 MCH 31.1 30.6 MCHC 35.6 34.6 RDW Std Deviation 42.5 43.0 RDW Coeff of Zuri 13.3 13.2 Plt Count 202 143 MPV 11.7 11.5 Albumin 3.2 L
--- NOTE | 2024-07-15 14:00 | Hospitalist Progress Note ---
Date of Service July 15, 2024 Assessment & Plan (1) Pneumonia: Plan: In summary this is a 49-year-old male patient admitted with acute kidney injury on CKD, hyponatremia, elevated troponin and pneumonia. Continue ceftriaxone and add doxycycline for CAP DuoNeb treatments as needed Maintain oxygen saturation above 90%. Patient currently saturating above 90% on room air Incentive spirometry Flutter therapy Total of 51 minutes was spent in the care planning, documentation and care coordination for this patient (2) AYLIN (acute kidney injury): Plan: Consult nephrology, appreciate consult Hold lisinopril Avoid nephrotoxins Continue IV fluids Trend creatinine No evidence of hydronephrosis on CT scan (3) CKD (chronic kidney disease) stage 3, GFR 30-59 ml/min: Plan: Patient has evidence of AYLIN on top of CKD, it has been over 1 year since he has had lab work Consulted nephrology (4) Asthma: Plan: Continue albuterol as needed and Qvar inhaler Maintain sat greater than 90% (5) HTN (hypertension): Plan: Continue beta-loraine Follow BPs closely Hold lisinopril due to AYLIN Trend labs (6) Gout: Plan: Continue allopurinol (7) JAZMIN (obstructive sleep apnea): Plan: Continue CPAP for night use (8) Hyponatremia: Plan: Will follow closely and trend labs, improved today 128--->130 Consulted nephrology (9) Elevated troponin: Plan: Probable demand ischemia in the setting of pneumonia, AYLIN and atrial flutter with RVR (10) LFT elevation: Plan: Patient has a history of fatty liver. Will continue to trend Would likely need to follow-up with hepatology (11) Atrial flutter: Plan: Cardiology consulted. Patient on metoprolol tartrate 75 mg twice daily Echocardiogram reviewed Continue IV heparin and convert to apixaban (12) Pneumonia involving left lung: Plan: Continue antibiotic Admission and Anticipated Discharge Date Admission Date: July 14, 2024 Subjective Chart, data and 24-hour vital signs reviewed Patient seen bedside with his spouse. He is feeling better. There is a mild improvement in his creatinine Troponin is elevated and is trending downward Patient remains in atrial flutter but with better rate control Review of Systems Review of Systems: Constitutional- no fever; no weight loss Eyes- no l changes ENT- no issues Pulmonary-+ cough, no wheezing, no shortness of breath Cardiac- no chest pain, no palpitations, no orthopnea, no dependent edema GI- no nausea, no vomiting, no diarrhea, no melena, no hematochezia - no dysuria, no hematuria Hematologic- no unusual bruising, no unusual bleeding Lymphatics- no adenopathy Neuro- no headaches, no focal neurologic symptoms Psych- no anxiety, no depression Physical Exam Physical Exam: General- adult obese, male sitting on chair Eyes- PERRL, EOMI, anicteric ENT- oropharynx clear Neck- supple, no JVD, no adenopathy, no thyromegaly; carotids +2/2, no bruits appreciated Lungs- clear to auscultation and percussion Heart-irregularly irregular at 96 bpm Abdomen- normal bowel sounds, soft, nontender, no masses or hepatosplenomegaly Extremities-trace pretibial edema, no calf tenderness; peripheral pulses intact, has venous stasis changes Neuro- alert, oriented x 3; PERRL, EOMI; no focal deficits Skin- warm & dry Results & Data Results & Data Vital Signs (Past 12 Hours) Vital Signs Temp Pulse Resp BP Pulse Ox O2 Del Method 07/15/24 11:09 36.4 C L 65 16 120/83 96 Room Air 07/15/24 09:53 Room Air 07/15/24 08:37 36.4 C L 76 18 122/83 95 Room Air 07/15/24 03:00 36.6 C 101 H 19 113/73 95 Room Air Laboratory Results Short CBC 07/14/24 07/15/24 Range/Units Unknown 03:41 WBC 14.26 H 9.53 (4.8-10.8) K/ul Hgb 15.1 13.6 L (14.0-18.0) g/dl Hct 42.4 39.3 L (42.0-52.0) % Plt Count 202 143 (130-400) K/uL BMP 07/14/24 07/15/24 Unknown 03:41 Sodium 128 L 130 L Potassium 4.0 3.5 Chloride 93 L 97 L Carbon Dioxide 21 21 BUN 77 H 84 H Creatinine 3.45 H 3.33 H Glucose 120 H 122 H Calcium 8.4 L 7.8 L Cardiac Enzymes 07/14/24 Range/Units Unknown Total Creatine Kinase 2447 H (30-223) U/L Liver Function 07/14/24 Range/Units Unknown Total Bilirubin 1.2 H (0.2-1.0) mg/dl AST 231 H (13-39) U/L ALT 150 H (7-52) U/L Alkaline Phosphatase 61 (34-104) U/L Albumin 3.2 L (3.4-5.0) gm/dl Urine 07/14/24 Range/Units Unknown Urine Color Yellow Urine Appearance Cloudy A (Clear) Urine pH 5.0 (4.5-7.5) Ur Specific Union 1.012 (1.000-1.030) Urine Protein Trace H (Negative) Urine Glucose (UA) Negative (Negative) Diagnostic Findings Laboratory Results WBC 9.53 K/ul (4.8-10.8) 07/15/24 03:41 RBC 4.45 M/uL (4.70-6.10) L 07/15/24 03:41 Hgb 13.6 g/dl (14.0-18.0) L 07/15/24 03:41 Hct 39.3 % (42.0-52.0) L 07/15/24 03:41 MCV 88.3 fL (80.0-100.0) 07/15/24 03:41 MCH 30.6 pg (25.0-34.0) 07/15/24 03:41 MCHC 34.6 g/dL (32.0-36.0) 07/15/24 03:41 RDW Std Deviation 43.0 fL (36.4-46.3) 07/15/24 03:41 RDW Coeff of Zuri 13.2 % (11.5-14.5) 07/15/24 03:41 Plt Count 143 K/uL (130-400) 07/15/24 03:41 MPV 11.5 fL (9.4-12.4) 07/15/24 03:41 Immature Gran % (Auto) 0.9 % 07/15/24 03:41 Neut % (Auto) 70.5 % 07/15/24 03:41 Lymph % (Auto) 15.8 % 07/15/24 03:41 [place] % (Auto) 11.0 % 07/15/24 03:41 Eos % (Auto) 1.4 % 07/15/24 03:41 Baso % (Auto) 0.4 % 07/15/24 03:41 Neut # (Auto) 6.71 K/uL (1.40-6.50) H 07/15/24 03:41 Lymph # (Auto) 1.51 K/uL (1.20-3.40) 07/15/24 03:41 [place] # (Auto) 1.05 K/uL (0.11-0.59) H 07/15/24 03:41 Eos # (Auto) 0.13 K/uL (0.00-0.50) 07/15/24 03:41 Baso # (Auto) 0.04 K/uL (0.00-0.20) 07/15/24 03:41 Immature Gran # (Auto) 0.09 K/uL (0.01-0.20) 07/15/24 03:41 PT Cancelled 07/14/24 Unknown INR Cancelled 07/14/24 Unknown APTT 28 Seconds (21-31) 07/15/24 03:41 PTT Ratio 1.0 07/15/24 03:41 Heparin Anti-Xa, Unfract 0.38 IU/ml (0.3-0.7) 07/15/24 09:56 Sodium 130 mmol/L (136-145) L 07/15/24 03:41 Potassium 3.5 mmol/L (3.5-5.1) 07/15/24 03:41 Chloride 97 mmol/L (98-107) L 07/15/24 03:41 Carbon Dioxide 21 mmol/L (21-32) 07/15/24 03:41 Anion Gap 12 (3-11) H 07/15/24 03:41 BUN 84 mg/dl (6-23) H 07/15/24 03:41 Creatinine 3.33 mg/dl (0.6-1.4) H 07/15/24 03:41 Est Cr Clr Drug Dosing 41.3 ml/min 07/15/24 03:41 Est GFR ( Amer) 23.5 ml/min 07/15/24 03:41 Est GFR (Non-Af Amer) 20.3 ml/min 07/15/24 03:41 BUN/Creatinine Ratio 25.2 (10-20) H 07/15/24 03:41 Glucose 122 mg/dl (70-99(Fasting)) H 07/15/24 03:41 POC Glucose 111 mg/dl (70-99) H 07/14/24 20:48 Osmolality 300 mOsm/kg (280-300) 07/15/24 03:41 Lactate 1.5 mmol/L (0.4-2.0) 07/15/24 03:41 Calcium 7.8 mg/dl (8.6-10.3) L 07/15/24 03:41 Magnesium 2.4 mg/dl (1.7-2.4) 07/14/24 Unknown Total Bilirubin 1.2 mg/dl (0.2-1.0) H 07/14/24 Unknown AST 231 U/L (13-39) H 07/14/24 Unknown ALT 150 U/L (7-52) H 07/14/24 Unknown Alkaline Phosphatase 61 U/L (34-104) 07/14/24 Unknown Total Creatine Kinase 2447 U/L (30-223) H 07/14/24 Unknown Troponin I High Sens 66.7 pg/ml (0-20) H* D 07/15/24 03:41 Total Protein 7.0 gm/dl (6.0-8.3) 07/14/24 Unknown Albumin 3.2 gm/dl (3.4-5.0) L 07/14/24 Unknown Globulin 3.8 gm/dl (2.5-4.0) 07/14/24 Unknown Albumin/Globulin Ratio 0.8 (0.9-2) L 07/14/24 Unknown Lipase 155 U/L (11-82) H 07/14/24 Unknown TSH 0.842 uIu/ml (0.300-4.500) 07/15/24 03:41 Urine Color Yellow 07/14/24 Unknown Urine Appearance Cloudy (Clear) A 07/14/24 Unknown Urine pH 5.0 (4.5-7.5) 07/14/24 Unknown Ur Specific [place] 1.012 (1.000-1.030) 07/14/24 Unknown Urine Protein Trace (Negative) H 07/14/24 Unknown Urine Glucose (UA) Negative (Negative) 07/14/24 Unknown Urine Ketones Negative (Negative) 07/14/24 Unknown Urine Blood 2+ (Negative) H 07/14/24 Unknown Urine Nitrite Negative (Negative) 07/14/24 Unknown Urine Bilirubin Negative (Negative) 07/14/24 Unknown Urine Urobilinogen Negative (Negative) 07/14/24 Unknown Ur Leukocyte Esterase Negative (Negative) 07/14/24 Unknown Urine WBC (Auto) 0-5 /hpf (0-5) 07/14/24 Unknown Urine RBC (Auto) 0-2 /hpf (0-2) 07/14/24 Unknown U Hyaline Cast (Auto) 3-5 /lpf (0-2) H 07/14/24 Unknown U Epithel Cells (Auto) 3-5 /hpf (0-2) H 07/14/24 Unknown Urine Bacteria (Auto) None Seen (None Seen) 07/14/24 Unknown Granular Casts Present /lpf (None Prsent) A 07/14/24 Unknown Impressions Abdomen/Pelvis CT 07/14/24 14:[address] WITHOUT CONTRAST CT DOSE: 1396.19 mGy.cm HISTORY: Acute kidney injury. Altered mental status. TECHNIQUE: Multiaxial CT images of the abdomen and pelvis were performed without contrast. A dose lowering technique was utilized adhering to the principles of ALARA. COMPARISON STUDY: None. FINDINGS: Patchy groundglass airspace opacities within the lingula consistent with a pneumonia. The right lung base is clear. No pneumoperitoneum. No pneumatosis. There is a lucent lesion within the right medial pubic bone which is likely benign. No suspicious osseous lesions identified. No acute fractures. There is a small hiatus hernia. The heart is top normal in size. Small fat- containing umbilical hernia. The unenhanced liver, gallbladder, pancreas, spleen, and adrenal glands are unremarkable. No retroperitoneal lymphadenopathy. Normal caliber abdominal aorta. No pelvic lymphadenopathy or pelvic free fluid. Normal bladder. Suboptimal evaluation for bowel pathology due to the lack of intravenous and oral contrast. However, there is no definite bowel wall thickening or obstruction. Colonic diverticulosis. No evidence for acute panniculitis. Normal appendix. No definite renal or ureteral calculi. There are few bilateral renal hypodense lesions within the largest on the left measuring 2.6 cm. These are incompletely characterized on this noncontrast study but statistically represent cysts. IMPRESSION: 1. Lingular airspace opacity consistent with a pneumonia. 1-2 month chest x-ray follow-up recommended to ensure resolution. 2. No definite bowel wall thickening or obstruction. 3. No hydronephrosis. 4. Normal appendix. 5. Additional findings as described above. ACT 112: Negative or not required by law. Electronically signed by: Arjun Torres M.D. 07/14/2024 5:[address] 07/14/24 14:58 CT head/brain wo con CLINICAL HISTORY: 49 years-old Male with ams. Acutely altered mental status TECHNIQUE: Multiple axial CT images of the head were obtained without contrast. A dose lowering technique was utilized adhering to the principles of ALARA. CT DOSE: 625.8 mGy.cm COMPARISON: None. FINDINGS: No acute intracranial hemorrhage, midline shift, intracranial mass, hydrocephalus, territorial ischemia or abnormal extra-axial collection. The calvarium is intact. 3.7 cm focus of polypoid mucosal thickening within the left maxillary sinus. Mastoid air cells are generally clear. Unremarkable soft tissues. IMPRESSION: No acute intracranial abnormality. ACT 112: Negative or not required by law. The above report was generated using voice recognition software. It may contain grammatical, syntax or spelling errors. Electronically signed by: Simone Gupta M.D. 07/14/2024 5:06 PM Chest X-Ray 07/15/24 02:57 XR chest 1V portable HISTORY: hyponatremia COMPARISON: Abdomen and pelvis CT 07/14/2024. FINDINGS: No pneumothorax. The heart is mildly enlarged. Right lung is clear. Airspace opacity within the left mid to lower lung zone consistent with a pneumonia. No evidence for pulmonary edema. No acute fractures. IMPRESSION: Left lung airspace opacity consistent with a pneumonia. 1-2 month chest x-ray follow-up recommended to ensure resolution. ACT 112: Negative or not required by law. Electronically signed by: Arjun Torres M.D. 07/15/2024 7:39 AM
--- NOTE | 2024-07-15 15:23 | Electrocardiogram Report ---
Test Reason : Blood Pressure : */* mmHG Vent. Rate : 109 BPM Atrial Rate : 326 BPM P-R Int : * ms QRS Dur : 82 ms QT Int : 330 ms P-R-T Axes : 70 18 37 degrees QTcB Int : 444 ms Atrial flutter with variable A-V block Abnormal ECG When compared with ECG of 22-Mar-2014 12:49, Atrial flutter now present Confirmed by Patel Dubon ([id number]) on 07/15/2024 3:23:37 PM Referred By: REFERRED SELF Confirmed By: Patel Dubon
[2024-07-15] MEDS ORDERED: cefTRIAXone SODIUM 1,000 MG/50 ML BAG IV SCH (17:00)
[2024-07-15] MEDS: cefTRIAXone SODIUM 2,000 MG/50 ML BAG IV SCH (17:14)
[2024-07-15] MEDS: METOPROLOL SUCC 25MG EXT REL TAB PO SCH (20:28)
[2024-07-16 06:49] LABS: Hematocrit (blood only) 41.2 % (42.0-52.0); Hemoglobin 14.6 g/dl (14.0-18.0); Mean Corpuscular Hgb Conc 35.4 g/dL (32.0-36.0); Mean Corpuscular Volume 87.5 fL (80.0-100.0); Mean Platelet Volume 11.7 fL (9.4-12.4); Platelet Count 174 K/uL (130-400); RDW Coefficient of Variation 13.3 % (11.5-14.5); RDW Standard Deviation 43.1 fL (36.4-46.3); Red Blood Count 4.71 M/uL (4.70-6.10); White Blood Count 9.19 K/ul (4.8-10.8)
[2024-07-16 07:22] LABS: Albumin Level 3.1 gm/dl (3.4-5.0); Bilirubin Direct 0.2 mg/dl (0-0.2); Bilirubin,Total 0.7 mg/dl (0.2-1.0); Calcium 8.2 mg/dl (8.6-10.3); Creatinine Clr Calc Pharmacy 46.4 ml/min; Est GFR (African American) 27.1 ml/min; Est GFR (Non-African American) 23.4 ml/min; Magnesium 2.7 mg/dl (1.7-2.4); Potassium 4.1 mmol/L (3.5-5.1); Total Protein 6.7 gm/dl (6.0-8.3)
[2024-07-16] MEDS: APIXABAN 5 MG TABLET PO SCH (08:35)
[2024-07-16] MEDS ORDERED: APIXABAN 2.5 MG TAB PO SCH (09:00)
--- NOTE | 2024-07-16 09:52 | Hospitalist Progress Note ---
Date of Service July 16, 2024 Assessment & Plan (1) Pneumonia involving left lung: (2) AYLIN (acute kidney injury): (3) CKD (chronic kidney disease) stage 3, GFR 30-59 ml/min: (4) Asthma: (5) HTN (hypertension): (6) Gout: Plan: Continue allopurinol (7) JAZMIN (obstructive sleep apnea): (8) Hyponatremia: (9) Elevated troponin: (10) LFT elevation: (11) Atrial flutter: Plan 49-year-old male patient admitted with acute kidney injury on CKD, hyponatremia and pneumonia. Presented from PCP office for abnormal labs with Cr of 4.1. CT A/P 1. Lingular airspace opacity consistent with a pneumonia. 1-2 month chest x-ray follow-up recommended to ensure resolution. 2. No definite bowel wall thickening or obstruction. 3. No hydronephrosis. 4. Normal appendix. Left sided community acquired pneumonia- Improving on empiric antibiotics, continue IS and flutter valve. Leucocytosis on admission is resolved. Recommended repeat CXR in 1-2 months to ensure resolution. AYLIN on CKD due to ischemic ATN- No hydronephrosis on CT. CK not too high. Cr continues to improve on IVF from 3.45->3.3->2.96. Baseline Cr of 1.5. Nephro on board. Avoid nephrotoxics, hypotension and contrast. Continue to hold lisinopril. Continue IVF. Continue strict I and Os. Not oliguric. Recheck labs in am. Rhabdomyolysis- CK trended down from 2447->482 with IVF. Not on statins. Medications reviewed. Elevated LFTs, H/o fatty liver- possibly from above. Now trending down. AST/ALT 231/150->101/120. Recheck in am. Not on statin. Meds reviewed. Will likely need follow up with hepatology as OP if does not resolve. Atrial flutter with rapid ventricular response- unknown duration, now rate controlled. [id number] of at least 2. Echo reviewed. Seen by cardio. Atenolol switched to metoprolol. S/p heparin drip and switched to eliquis per cardio recommendations. Elevated troponin- likely demand ischemia in setting of above factors. Trop trend noted. Seen by cardio. Hyponatremia- improving. Sodium 128->134 JAZMIN on CPA hs- continue H/o gout- on allopurinol H/o asthma- continue home inhalers. No asthma exacerbation. On room air. ?renal cyst in CT- CT shows few bilateral renal hypodense lesions within the largest on the left measuring 2.6 cm. These are incompletely characterized on this noncontrast study but statistically represent cysts. Discussed with patient. Recommend OP follow up with PCP. DVT ppx- eliquis Dispo- Awaiting further improvement in renal function- likely 1-2 days Updated family at bedside Time spent- Approx 35 mins Admission and Anticipated Discharge Date Admission Date: July 14, 2024 Subjective Patient was seen and examined at bedside. He is feeling better. No fever, chills, CP, SOB, N/V. Normal appetite. Voiding without issues. Regular BM. Cough improving. Review of Systems Review of Systems: All systems reviewed & are unremarkable except as noted in Subjective Physical Exam Physical Exam: General: Morbidly obese, sitting in bed eating lunch, not in distress, on room air HEENT: EOMI, NADINE, MMM Chest: Clear breath sounds bilaterally, no wheezes or crackles CVS: Irregular rate and rhythm, normal heart sounds Abdomen: Soft, non tender, not distended, normal bowel sounds Neuro: Awake, alert, oriented, conversing well, non focal Extremities: Trace LE edema Results & Data Results & Data Vital Signs (Past 12 Hours) Vital Signs Temp Pulse Pulse Pulse Resp BP BP 07/16/24 08:49 78 07/16/24 07:29 36.4 C L 90 18 115/77 07/16/24 02:42 36.6 C 87 18 117/79 07/15/24 22:49 36.7 C 85 18 115/77 07/15/24 22:01 80 Pulse Ox O2 Del Method 07/16/24 08:49 07/16/24 07:29 94 Room Air 07/16/24 02:42 96 Room Air 07/15/24 22:49 97 Room Air 07/15/24 22:01 Laboratory Results Short CBC 07/16/24 Range/Units 06:09 WBC 9.19 (4.8-10.8) K/ul Hgb 14.6 (14.0-18.0) g/dl Hct 41.2 L (42.0-52.0) % Plt Count 174 (130-400) K/uL BMP 07/16/24 06:09 Sodium 134 L Potassium 4.1 Chloride 100 Carbon Dioxide 23 BUN 77 H Creatinine 2.96 H D Glucose 115 H Calcium 8.2 L Cardiac Enzymes 07/16/24 Range/Units 06:09 Total Creatine Kinase 482 H (30-223) U/L Liver Function 07/16/24 Range/Units 06:09 Total Bilirubin 0.7 D (0.2-1.0) mg/dl Direct Bilirubin 0.2 (0-0.2) mg/dl AST 101 H (13-39) U/L ALT 120 H (7-52) U/L Alkaline Phosphatase 57 (34-104) U/L Albumin 3.1 L (3.4-5.0) gm/dl
--- NOTE | 2024-07-16 13:32 | Cardiology Progress Note ---
Date of Service July 16, 2024 Assessment & Plan (1) Atrial flutter: Plan Pneumonia AYLIN New atrial flutter JAZMIN Morbid Obesity -Heart rate is well controlled -Patient appears euvolemic on examination -LVEF preserved, LV systolic function normal. -Continue metoprolol succinate 75mg BID -Continue Eliquis 5mg BID -Follow-up with cardiology as outpatient to discuss possible DCCV in the future. Case discussed with Dr. Hawk. I spent a total of 30 minutes on the date of service in preparation, delivery, and documentation of the care provided to this patient, excluding any time spent in the performance of separately billed services. Sandie Huynh PA-C Department of Cardiology, [facility] This chart was completed in part utilizing Speech Voice Recognition Software. Grammatical errors, random word insertions, pronoun errors, and incomplete sentences are an occasional consequence of this system due to software limitations, ambient noise, and hardware issues. Any formal questions or concerns about the content, text, or information contained within the body of this dictation should be directly addressed to the provider for clarification. Admission and Anticipated Discharge Date Admission Date: July 14, 2024 Supervising Physician Co-Signing Physician Notes I have reviewed the advance practitioner's documentation, and I agree with, and take responsibility for the plan of care. I have personally performed a history and physical examination on the patient. I spent a total of 30 minutes on the date of service in preparation, delivery, and documentation of the care provided to this patient, excluding any time spent in the performance of separately billed service Patient doing well today. He denies chest pain, dyspnea, or syncope. On clinical exam he is euvolemic. He remains in atrial fibrillation but rates are in the 80s. He is asymptomatic from his atrial fibrillation. His mildly elevated troponins are most likely from demand ischemia from his atrial fibrillation rapid ventricular response and underlying Sepsis from pneumonia. He has been started on metoprolol which she is tolerating well and Eliquis. He will need follow-up with cardiology as an outpatient. Please reconsult cardiology if needed. Subjective Patient reports feeling well. He has no complaints Denies chest pain, shortness of breath and palpitations Review of Systems Review of Systems: All systems reviewed & are unremarkable except as noted in HPI & below Physical Exam Constitutional: WD/WN, vitals as above Eyes: PERRL, conjunctivae normal, anicteric sclerae Respiratory: normal respiratory effort, lungs clear to auscultation Auscultation: no crackles, no rales and no wheezes Cardiovascular: Rate/Rhythm: regular rate and + irregularly irregular Heart Sounds: normal S1 and normal S2 Vessels: no JVD Extremities: + edema Trace BLE edema Skin: no rashes, warm and dry Psychiatric: A+Ox3, euthymic affect Results & Data Vital Signs (Past 12 Hours) Vital Signs Temp Pulse Pulse Resp BP BP Pulse Ox 07/16/24 11:40 93 H 18 125/86 94 07/16/24 08:49 78 07/16/24 07:29 36.4 C L 90 18 115/77 94 07/16/24 02:42 36.6 C 87 18 117/79 96 O2 Del Method 07/16/24 11:40 Room Air 07/16/24 08:49 07/16/24 07:29 Room Air 07/16/24 02:42 Room Air Laboratory Results Cardiac Enzymes 07/16/24 Range/Units 06:09 AST 101 H (13-39) U/L CBC 07/16/24 Range/Units 06:09 WBC 9.19 (4.8-10.8) K/ul RBC 4.71 (4.70-6.10) M/uL Hgb 14.6 (14.0-18.0) g/dl Hct 41.2 L (42.0-52.0) % Plt Count 174 (130-400) K/uL Comprehensive Metabolic Panel 07/16/24 Range/Units 06:09 Sodium 134 L (136-145) mmol/L Potassium 4.1 (3.5-5.1) mmol/L Chloride 100 (98-107) mmol/L Carbon Dioxide 23 (21-32) mmol/L BUN 77 H (6-23) mg/dl Creatinine 2.96 H D (0.6-1.4) mg/dl Glucose 115 H (70-99(Fasting)) mg/dl Calcium 8.2 L (8.6-10.3) mg/dl Direct Bilirubin 0.2 (0-0.2) mg/dl AST 101 H (13-39) U/L ALT 120 H (7-52) U/L Alkaline Phosphatase 57 (34-104) U/L Total Protein 6.7 (6.0-8.3) gm/dl Albumin 3.1 L (3.4-5.0) gm/dl Intake and Output 07/15/24 07/16/24 07/16/24 22:59 06:59 14:59 Intake Total 1755.333 / 3822.666 824.666 / 3822.666 328.667 / 328.667 Output Total 750 / 2150 1000 / 2150 350 / 350 Balance 1005.333 / 1672.666 -175.334 / 1672.666 -21.333 / -21.333 Intake: IV 1505.333 / 3102.666 474.666 / 3102.666 88.667 / 88.667 Heparin Sodium/Dextrose 25,000 455.333 / 1052.666 474.666 / 1052.666 88.667 / 88.667 units In 500 ml @ 2,000 UNITS/ HR 40 mls/hr IV .[id number] ALY Rx #:[id number] Plasma-Lyte A 1,000 ml @ 100 1000 / 2000 mls/hr IV .Q10H ALY Rx#: [id number] cefTRIAXone SODIUM 2,000 mg In 50 / 50 50 ml @ 100 mls/hr IV Q24H ALY Rx#:[id number] Oral 250 / 720 350 / 720 240 / 240 Output: Urine 750 / 2150 1000 / 2150 350 / 350 Other: Weight 172 kg (1) Atrial flutter Atrial flutter type: atypical Qualified Code(s): I48.4 - Atypical atrial flutter
--- NOTE | 2024-07-16 14:04 | Nephrology Progress Note ---
Date of Service July 16, 2024 Assessment & Plan (1) AYLIN (acute kidney injury): Plan: Patient with acute kidney injury due to ischemic ATN in setting of pneumonia. He has CKD stage III with baseline creatinine of 1.5. Admission creatinine of 4 downtrending to 2.9 today. He is making urine. Recommend strict input output. D/C fluids as his BP is acceptable. Encourage oral intake,HR is controlled Renally dose medications for current eGFR. Avoid contrast. (2) Pneumonia involving left lung: Plan: Patient is getting Rocephin and doxycycline per primary team. Admission and Anticipated Discharge Date Admission Date: July 14, 2024 Subjective Patient was seen and examined at bedside. He is feeling better. No fever, chills, CP, SOB, N/V. Normal appetite. Voiding without issues. Regular BM. Cough improving. Review of Systems 2 Review of Systems: All other systems were reviewed and negative except as noted in HPI Results & Data Vital Signs (Past 12 Hours) Vital Signs Temp Pulse Pulse Resp BP BP Pulse Ox 07/16/24 11:40 93 H 18 125/86 94 07/16/24 08:49 78 07/16/24 07:29 36.4 C L 90 18 115/77 94 07/16/24 02:42 36.6 C 87 18 117/79 96 O2 Del Method 07/16/24 11:40 Room Air 07/16/24 08:49 07/16/24 07:29 Room Air 07/16/24 02:42 Room Air Laboratory Results 07/16/24 06:09 07/16/24 06:09
[2024-07-17 06:50] LABS: Hematocrit (blood only) 42.5 % (42.0-52.0); Hemoglobin 14.8 g/dl (14.0-18.0); Mean Corpuscular Hemoglobin 30.6 pg (25.0-34.0); Mean Corpuscular Hgb Conc 34.8 g/dL (32.0-36.0); Mean Corpuscular Volume 87.8 fL (80.0-100.0); Platelet Count 220 K/uL (130-400); RDW Coefficient of Variation 13.4 % (11.5-14.5); RDW Standard Deviation 43.5 fL (36.4-46.3); Red Blood Count 4.84 M/uL (4.70-6.10); White Blood Count 9.49 K/ul (4.8-10.8)
[2024-07-17 07:16] LABS: BUN Creatinine Ratio 32.3 (10-20); Calcium 8.6 mg/dl (8.6-10.3); Creatinine Clr Calc Pharmacy 59.3 ml/min; Est GFR (African American) 36.4 ml/min; Est GFR (Non-African American) 31.4 ml/min; Potassium 4.3 mmol/L (3.5-5.1)
--- NOTE | 2024-07-17 08:00 | Hospitalist Progress Note ---
Date of Service July 17, 2024 Assessment & Plan (1) Pneumonia involving left lung: (2) AYLIN (acute kidney injury): (3) CKD (chronic kidney disease) stage 3, GFR 30-59 ml/min: (4) Asthma: (5) HTN (hypertension): (6) Gout: Plan: Continue allopurinol (7) JAZMIN (obstructive sleep apnea): (8) Hyponatremia: (9) Elevated troponin: (10) LFT elevation: (11) Atrial flutter: Plan 49-year-old male patient admitted with acute kidney injury on CKD, hyponatremia and pneumonia. Presented from PCP office for abnormal labs with Cr of 4.1. CT A/P 1. Lingular airspace opacity consistent with a pneumonia. 1-2 month chest x-ray follow-up recommended to ensure resolution. 2. No definite bowel wall thickening or obstruction. 3. No hydronephrosis. 4. Normal appendix. Left sided community acquired pneumonia- Improving on empiric antibiotics cefriaxone/doxy D 02/03, continue IS and flutter valve. Leucocytosis on admission is resolved. Recommended repeat CXR in 1-2 months to ensure resolution. AYLIN on CKD due to ischemic ATN- No hydronephrosis on CT. CK 2K, now resolved. Cr continues to improve off of IVF, from 3.45->3.3->2.96->2.32. Baseline Cr of 1.5. Nephro on board. Avoid nephrotoxics, hypotension and contrast. Continue to hold lisinopril. IVF has been discontinued as of 07/16. Continue strict I and Os. Not oliguric. Recheck labs in am. Rhabdomyolysis- Resolved. CK trended down from 2447->482->232. Not on statins. Medications reviewed. Elevated LFTs, H/o fatty liver- possibly from above. Continues to downtrend. AST/ALT 231/150->73/113. Recheck in am. Not on statin, denies alcohol use. Meds reviewed. Will likely need follow up with hepatology as OP if does not resolve. Atrial flutter with rapid ventricular response- unknown duration, now rate contr olled. [id number] of at least 2. Echo reviewed. Seen by cardio. Atenolol switched to metoprolol. S/p heparin drip and switched to eliquis per cardio recommendations. Will need simpson check for eliquis by CM, and free coupon. Elevated troponin- likely demand ischemia in setting of above factors. Trop trend noted. Seen by cardio. Hyponatremia- resolved. Sodium 128->134->137 JAZMIN on CPA hs- continue H/o gout- on allopurinol H/o asthma- continue home inhalers. No asthma exacerbation. On room air. ?renal cyst in CT- CT shows few bilateral renal hypodense lesions within the largest on the left measuring 2.6 cm. These are incompletely characterized on this noncontrast study but statistically represent cysts. Discussed with patient. Recommend OP follow up. DVT ppx- eliquis Dispo- Anticipate discharge tomorrow if renal function continues to improve. Will need simpson check for eliquis per CM, and free coupon. Updated family at bedside Time spent- Approx 35 mins Admission and Anticipated Discharge Date Admission Date: July 14, 2024 Subjective Patient was seen and examined at bedside in presence of . Sitting in chair. Feeling good. Denies any new issues. Making good urine. Regular BM. States ambulating without issues. No bleeding. No fever, chills, CP, SOB, N/V. Review of Systems Review of Systems: All systems reviewed & are unremarkable except as noted in Subjective Physical Exam Physical Exam: General: Morbidly obese, sitting in chair, not in distress, on room air HEENT: EOMI, NADINE, MMM Chest: Clear breath sounds bilaterally, no wheezes or crackles CVS: Irregular rate and rhythm, normal heart sounds Abdomen: Soft, non tender, not distended, normal bowel sounds Neuro: Awake, alert, oriented, conversing well, non focal Extremities: Trace LE edema Results & Data Results & Data Vital Signs (Past 12 Hours) Vital Signs Temp Pulse Pulse Resp BP Pulse Ox O2 Del Method 07/17/24 02:45 36.3 C L 95 H 18 121/86 97 Room Air 07/16/24 22:28 36.7 C 92 H 18 102/73 97 Room Air 07/16/24 21:56 87 07/16/24 20:30 Room Air Laboratory Results Short CBC 07/17/24 Range/Units 06:29 WBC 9.49 (4.8-10.8) K/ul Hgb 14.8 (14.0-18.0) g/dl Hct 42.5 (42.0-52.0) % Plt Count 220 (130-400) K/uL BMP 07/17/24 06:29 Sodium 137 Potassium 4.3 Chloride 104 Carbon Dioxide 23 BUN 75 H Creatinine 2.32 H D Glucose 109 H Calcium 8.6 Cardiac Enzymes 07/17/24 Range/Units 06:29 Total Creatine Kinase 238 H (30-223) U/L (11) Atrial flutter Atrial flutter type: atypical Qualified Code(s): I48.4 - Atypical atrial flutter
[2024-07-17 08:22] LABS: Albumin Level 3.3 gm/dl (3.4-5.0); Bilirubin Direct 0.2 mg/dl (0-0.2); Bilirubin,Total 0.7 mg/dl (0.2-1.0)
[2024-07-17] MEDS ORDERED: LABETALOL HCL IV 5 MG/ML 20ML IV PRN (15:23)
[2024-07-18 07:01] LABS: Hematocrit (blood only) 41.7 % (42.0-52.0); Hemoglobin 14.1 g/dl (14.0-18.0); Mean Corpuscular Hemoglobin 30.4 pg (25.0-34.0); Mean Corpuscular Hgb Conc 33.8 g/dL (32.0-36.0); Mean Corpuscular Volume 89.9 fL (80.0-100.0); Mean Platelet Volume 10.8 fL (9.4-12.4); Platelet Count 223 K/uL (130-400); RDW Coefficient of Variation 13.4 % (11.5-14.5); RDW Standard Deviation 44.3 fL (36.4-46.3); Red Blood Count 4.64 M/uL (4.70-6.10); White Blood Count 8.75 K/ul (4.8-10.8)
[2024-07-18 07:20] LABS: Albumin Globulin Ratio 0.8 (0.9-2); Albumin Level 2.9 gm/dl (3.4-5.0); BUN Creatinine Ratio 28.9 (10-20); Bilirubin,Total 0.6 mg/dl (0.2-1.0); Calcium 8.6 mg/dl (8.6-10.3); Creatinine Clr Calc Pharmacy 58.5 ml/min; Est GFR (African American) 35.8 ml/min; Est GFR (Non-African American) 30.9 ml/min; Globulin 3.5 gm/dl (2.5-4.0); Potassium 4.6 mmol/L (3.5-5.1); Total Protein 6.4 gm/dl (6.0-8.3)
[2024-07-18 08:09] VITALS: RESP 16
[2024-07-18 10:53] VITALS: BP 147/93; TEMP 97.3; O2SAT 98
--- NOTE | 2024-07-18 11:45 | Nephrology Progress Note ---
Date of Service July 18, 2024 Assessment & Plan (1) AYLIN (acute kidney injury): Plan: Patient with improving Stage 2 acute kidney injury due to ischemic ATN in setting of pneumonia. He has CKD stage III with baseline creatinine of 1.5 (however last OP lab in this range was 06/2023; was creatinine fo 4 as OP earlier this month). Not clear that 1.5 will still be his baseline given long interval between labs. Admission creatinine of 4 downtrending to 2.4 today. Encourage oral intake,HR is controlled Renally dose medications for current eGFR. chemistries acceptable/ hyponatremia resolved Avoid contrast. -continue strict I/O while in house >> 1.8 L negative past 24 hrs assuming I/O complete, in absence of diuretics >> c/w post ATN diuresis -f/u cardiology recommendations -no medication changes for now -continue metoprolol; will add amlodipine 2.5 mg daily as well From renal standpoint he is improving. Nephro d/c recommendations (preliminary) -no nsaids -d/c on current beta loraine and new ca channel loraine for now >> hold lisinopril at d/c d/t AYLIN -f/u w/ cardiology as OP -needs to est w/ nephro in [facility] or [facility] any physician next 2 wks >> pls have nephro nurse get BMP, UACM, ACR, PTH, 25 OHD, cbc, t sat all to be drawn 7- 10 days after admission (2) Pneumonia involving left lung: Plan: Patient is getting Rocephin and doxycycline per primary team. Admission and Anticipated Discharge Date Admission Date: July 14, 2024 Subjective seen on early AM rounds > not feeling too poorly; up in chair; using CPAP; no sob, no cough, no edema. denies n/v, changes in UOP or voiding concerns. no palpitations; cardiology following Review of Systems 2 Review of Systems: All systems reviewed & are unremarkable except as noted in Subjective Physical Exam 2 Constitutional: well developed (sitting up in chair on RA) and well nourished Eyes: EOM intact bilaterally ENMT: Ears: no external ear abnormality Nose: no external nose abnormality Mouth: + dry oral mucous membranes Neck: no nuchal rigidity Respiratory: normal respiratory effort Auscultation: + diminished lung sounds Cardiovascular: Rate/Rhythm: regular rate and regular rhythm Extremities: + edema (trace) Gastrointestinal (Abdomen): Inspection/Auscultation: normal bowel sounds P ercussion/Palpation: abdomen soft; abdomen nontender Musculoskeletal: Extremities: strength 5/5 throughout Skin: no rashes, warm and dry Neurologic: childress, fluent speech, no tremor Psychiatric: Orientation: alert and oriented x 3 Results & Data Vital Signs (Past 12 Hours) Vital Signs Temp Pulse Pulse Resp BP BP Pulse Ox 07/18/24 10:53 36.3 C L 90 16 147/93 H 98 07/18/24 08:08 36.5 C 69 16 126/81 96 07/18/24 08:00 74 07/18/24 08:00 07/18/24 03:53 36.6 C 96 H 20 128/92 97 O2 Del Method 07/18/24 10:53 Room Air 07/18/24 08:08 Room Air 07/18/24 08:00 07/18/24 08:00 Room Air 07/18/24 03:53 Room Air Laboratory Results 07/18/24 06:35 07/18/24 06:35
[2024-07-18] MEDS: amLODIPine BESYLATE 5 MG TAB PO ONE (12:45)
--- NOTE | 2024-07-18 15:15 | Discharge Summary ---
Discharge Summary Date of Service July 18, 2024 Principal Dx & Hospital Course #1 = Principal Diagnosis (1) Pneumonia involving left lung: (2) AYLIN (acute kidney injury): (3) CKD (chronic kidney disease) stage 3, GFR 30-59 ml/min: (4) Asthma: (5) HTN (hypertension): (6) Gout: Continue allopurinol (7) JAZMIN (obstructive sleep apnea): (8) Hyponatremia: (9) Elevated troponin: (10) LFT elevation: (11) Atrial flutter: Plan 49-year-old male patient admitted with acute kidney injury on CKD, hyponatremia and pneumonia. Presented from PCP office for abnormal labs with Cr of 4.1. CT A/P 1. Lingular airspace opacity consistent with a pneumonia. 1-2 month chest x-ray follow-up recommended to ensure resolution. 2. No definite bowel wall thickening or obstruction. 3. No hydronephrosis. 4. Normal appendix. Left sided community acquired pneumonia- He was started on cefriaxone/doxy D 02/03, continue IS and flutter valve. Leucocytosis on admission is resolved. Recommended repeat CXR in 1-2 months to ensure resolution. AYLIN on CKD due to ischemic ATN- No hydronephrosis on CT. CK 2K, now resolved. Cr continues to improve off of IVF, from 3.45->3.3->2.96->2.32. Baseline Cr of 1.5. Nephro on board. Avoid nephrotoxics, hypotension and contrast. Continue to hold lisinopril. IVF has been discontinued as of 07/16. Continue strict I and Os. Not oliguric. Recheck labs in am. Rhabdomyolysis- Resolved. CK trended down from 2447->482->232. Not on statins. Medications reviewed. Elevated LFTs, H/o fatty liver- possibly from above. Continues to downtrend. A ST/ALT 231/150->73/113. Recheck in am. Not on statin, denies alcohol use. Meds reviewed. Will likely need follow up with hepatology as OP if does not resolve. Atrial flutter with rapid ventricular response- unknown duration, now rate controlled. [id number] of at least 2. Echo reviewed. Seen by cardio. Atenolol switched to metoprolol. S/p heparin drip and switched to eliquis per cardio recommendations. Will need simpson check for eliquis by CM, and free coupon. Elevated troponin- likely demand ischemia in setting of above factors. Trop trend noted. Seen by cardio. Hyponatremia- resolved. Sodium 128->134->137 JAZMIN on CPA hs- continue H/o gout- on allopurinol H/o asthma- continue home inhalers. No asthma exacerbation. On room air. ?renal cyst in CT- CT shows few bilateral renal hypodense lesions within the largest on the left measuring 2.6 cm. These are incompletely characterized on this noncontrast study but statistically represent cysts. Discussed with patient. Recommend OP follow up. Notes For Next Care Provider F/U with Nephro and Cardiology Finish antibiotics Check BMP, CBC and LFTs at hospital f/u visit Medication Changes From Visit Stop Lisnopril and Atenolol Take Omnicef and doxycycline antibiotics until finished Take Eliquis for the atrial fibrillation twice per day Take amlodipine and metoprolol for blood pressure and heart rate control. Admission HPI Per Admitting Provider Rebekah Martinez is a 49-year-old male with past medical history of hypertension, obesity, fatty liver, CKD 3 AA, obstructive sleep apnea, gout and asthma who presented to the emergency room today at the suggestion of his primary care provider office after having blood work drawn yesterday. Patient had an elevated creatinine to 4.1. His last creatinine was done in June 2023 and was 1.6. He does have known CKD 3 AA. He also has hypertension. Patient has also had a cough and a sore throat for the past couple days as well. In office testing for influenza and COVID-19 were negative. Lyme testing was negative as well. Workup in the ED reveals a creatinine of 3.45, leukocytosis, hyponatremia and a lingular infiltrate on chest x-ray. Patient was given ceftriaxone and 1 dose of vancomycin in the ED. Patient feels fatigued. Patient is accompanied with his . Patient is an employee here at [employer] in [employer]. Patient is referred for admission and further workup. Medications at home: Albuterol inhaler 2 to 4 puffs every 4-6 hours as needed for wheezing Allopurinol 200 mg daily Atenolol 50 mg daily Doxycycline 100 mg p.o. twice daily Qvar inhaler 2 puffs twice daily Levocetirizine dihydrochloride 5 mg daily Lisinopril 10 mg daily Pepcid 20 mg twice daily Previous surgical history: Believes he had an appendectomy as a child Social history: Negative denies tobacco or alcohol use and has 1 daughter Family history: Mother in her 60s had cancer Father is living has a history of heart disease and atrial fibrillation Admission Exam Per Admitting Provider General- adult obese, male sitting on ED bed Head- atraumatic Eyes- PERRL, EOMI, anicteric ENT- oropharynx clear Neck- supple, no JVD, no adenopathy, no thyromegaly; carotids +2/2, no bruits appreciated Lungs- clear to auscultation and percussion Heart- regular rhythm; no murmur, no gallop, no rub appreciated Abdomen- normal bowel sounds, soft, nontender, no masses or hepatosplenomegaly Extremities-trace pretibial edema, no calf tenderness; peripheral pulses intact, has venous stasis changes Neuro- alert, oriented x 3; PERRL, EOMI; no focal deficits Skin- warm & dry Discharge Exam General: Morbidly obese, sitting in chair, not in distress, on room air HEENT: EOMI, NADINE, MMM Chest: Clear breath sounds bilaterally, no wheezes or crackles CVS: Irregular rate and rhythm, normal heart sounds Abdomen: Soft, non tender, not distended, normal bowel sounds Neuro: Awake, alert, oriented, conversing well, non focal Extremities: Trace LE edema Updated Medication List Medication Instructions Recorded Confirmed Type albuterol sulfate 90 mcg/actuation 2 puff inhalation Q4 PRN Shortness 07/14/24 07/14/24 History aerosol inhaler Of Breath Or Wheezing allopurinol 100 mg tablet 200 mg PO QPM 07/14/24 07/14/24 History beclomethasone dipropionate 40 2 inh inhalation BID 07/14/24 07/14/24 History mcg/actuation HFA breath activated aerosol (Qvar RediHaler) codeine 10 mg-guaifenesin 100 mg/5 0 ml PO DIRECTED PRN Cough 07/14/24 07/14/24 History mL oral liquid doxycycline hyclate 100 mg capsule 100 mg PO BID 07/14/24 07/14/24 History famotidine 20 mg tablet 20 mg PO HS 07/14/24 07/14/24 History levocetirizine 5 mg tablet 5 mg PO QPM 07/14/24 07/14/24 History amlodipine 5 mg tablet (Norvasc) 2.5 mg (1/2 x 5 mg) PO QAM #30 tabs 07/18/24 Rx apixaban 5 mg tablet (Eliquis) 5 mg PO BID #60 tabs 07/18/24 Rx cefdinir 300 mg capsule 300 mg PO DAILY 5 days #5 caps 07/18/24 Rx metoprolol succinate 25 mg 75 mg (3 x 25 mg) PO BID #180 tabs 07/18/24 Rx tablet,extended release 24 hr Hospital Stay Data Consultations 07/14/24 17:34 ED Decision to Admit Stat 07/14/24 18:50 Consult Nephrology Routine 07/14/24 21:21 Consult Cardiology Routine Diagnostic Imagining Performed 07/14/24 14:58 CT abd pelvis wo con Stat CT head/brain wo con Stat Laboratory Results WBC 8.75 K/ul (4.8-10.8) 07/18/24 06:35 RBC 4.64 M/uL (4.70-6.10) L 07/18/24 06:35 Hgb 14.1 g/dl (14.0-18.0) 07/18/24 06:35 Hct 41.7 % (42.0-52.0) L 07/18/24 06:35 MCV 89.9 fL (80.0-100.0) 07/18/24 06:35 MCH 30.4 pg (25.0-34.0) 07/18/24 06:35 MCHC 33.8 g/dL (32.0-36.0) 07/18/24 06:35 RDW Std Deviation 44.3 fL (36.4-46.3) 07/18/24 06:35 RDW Coeff of Zuri 13.4 % (11.5-14.5) 07/18/24 06:35 Plt Count 223 K/uL (130-400) 07/18/24 06:35 MPV 10.8 fL (9.4-12.4) 07/18/24 06:35 Immature Gran % (Auto) 0.9 % 07/15/24 03:41 Neut % (Auto) 70.5 % 07/15/24 03:41 Lymph % (Auto) 15.8 % 07/15/24 03:41 Meagher % (Auto) 11.0 % 07/15/24 03:41 Eos % (Auto) 1.4 % 07/15/24 03:41 Baso % (Auto) 0.4 % 07/15/24 03:41 Neut # (Auto) 6.71 K/uL (1.40-6.50) H 07/15/24 03:41 Lymph # (Auto) 1.51 K/uL (1.20-3.40) 07/15/24 03:41 Meagher # (Auto) 1.05 K/uL (0.11-0.59) H 07/15/24 03:41 Eos # (Auto) 0.13 K/uL (0.00-0.50) 07/15/24 03:41 Baso # (Auto) 0.04 K/uL (0.00-0.20) 07/15/24 03:41 Immature Gran # (Auto) 0.09 K/uL (0.01-0.20) 07/15/24 03:41 PT Cancelled 07/14/24 Unknown INR Cancelled 07/14/24 Unknown APTT 28 Seconds (21-31) 07/15/24 03:41 PTT Ratio 1.0 07/15/24 03:41 Heparin Anti-Xa, Unfract 0.50 IU/ml (0.3-0.7) 07/16/24 06:09 Sodium 140 mmol/L (136-145) 07/18/24 06:35 Potassium 4.6 mmol/L (3.5-5.1) 07/18/24 06:35 Chloride 107 mmol/L (98-107) 07/18/24 06:35 Carbon Dioxide 26 mmol/L (21-32) 07/18/24 06:35 Anion Gap 7 (3-11) 07/18/24 06:35 BUN 68 mg/dl (6-23) H 07/18/24 06:35 Creatinine 2.35 mg/dl (0.6-1.4) H 07/18/24 06:35 Est Cr Clr Drug Dosing 58.5 ml/min 07/18/24 06:35 Est GFR ( Amer) 35.8 ml/min 07/18/24 06:35 Est GFR (Non-Af Amer) 30.9 ml/min 07/18/24 06:35 BUN/Creatinine Ratio 28.9 (10-20) H 07/18/24 06:35 Glucose 103 mg/dl (70-99(Fasting)) H 07/18/24 06:35 POC Glucose 111 mg/dl (70-99) H 07/14/24 20:48 Osmolality 300 mOsm/kg (280-300) 07/15/24 03:41 Lactate 1.5 mmol/L (0.4-2.0) 07/15/24 03:41 Calcium 8.6 mg/dl (8.6-10.3) 07/18/24 06:35 Magnesium 2.7 mg/dl (1.7-2.4) H 07/16/24 06:09 Total Bilirubin 0.6 mg/dl (0.2-1.0) 07/18/24 06:35 Direct Bilirubin 0.2 mg/dl (0-0.2) 07/17/24 06:29 AST 74 U/L (13-39) H 07/18/24 06:35 ALT 108 U/L (7-52) H 07/18/24 06:35 Alkaline Phosphatase 56 U/L (34-104) 07/18/24 06:35 Total Creatine Kinase 238 U/L (30-223) H 07/17/24 06:29 Troponin I High Sens 66.7 pg/ml (0-20) H* D 07/15/24 03:41 Total Protein 6.4 gm/dl (6.0-8.3) 07/18/24 06:35 Albumin 2.9 gm/dl (3.4-5.0) L 07/18/24 06:35 Globulin 3.5 gm/dl (2.5-4.0) 07/18/24 06:35 Albumin/Globulin Ratio 0.8 (0.9-2) L 07/18/24 06:35 Lipase 155 U/L (11-82) H 07/14/24 Unknown TSH 0.842 uIu/ml (0.300-4.500) 07/15/24 03:41 Urine Color Yellow 07/14/24 Unknown Urine Appearance Cloudy (Clear) A 07/14/24 Unknown Urine pH 5.0 (4.5-7.5) 07/14/24 Unknown Ur Specific [place] 1.012 (1.000-1.030) 07/14/24 Unknown Urine Protein Trace (Negative) H 07/14/24 Unknown Urine Glucose (UA) Negative (Negative) 07/14/24 Unknown Urine Ketones Negative (Negative) 07/14/24 Unknown Urine Blood 2+ (Negative) H 07/14/24 Unknown Urine Nitrite Negative (Negative) 07/14/24 Unknown Urine Bilirubin Negative (Negative) 07/14/24 Unknown Urine Urobilinogen Negative (Negative) 07/14/24 Unknown Ur Leukocyte Esterase Negative (Negative) 07/14/24 Unknown Urine WBC (Auto) 0-5 /hpf (0-5) 07/14/24 Unknown Urine RBC (Auto) 0-2 /hpf (0-2) 07/14/24 Unknown U Hyaline Cast (Auto) 3-5 /lpf (0-2) H 07/14/24 Unknown U Epithel Cells (Auto) 3-5 /hpf (0-2) H 07/14/24 Unknown Urine Bacteria (Auto) None Seen (None Seen) 07/14/24 Unknown Granular Casts Present /lpf (None Prsent) A 07/14/24 Unknown Impressions Abdomen/Pelvis CT 07/14/24 14:[address] WITHOUT CONTRAST CT DOSE: 1396.19 mGy.cm HISTORY: Acute kidney injury. Altered mental status. TECHNIQUE: Multiaxial CT images of the abdomen and pelvis were performed without contrast. A dose lowering technique was utilized adhering to the principles of ALARA. COMPARISON STUDY: None. FINDINGS: Patchy groundglass airspace opacities within the lingula consistent with a pneumonia. The right lung base is clear. No pneumoperitoneum. No pneumatosis. There is a lucent lesion within the right medial pubic bone which is likely benign. No suspicious osseous lesions identified. No acute fractures. There is a small hiatus hernia. The heart is top normal in size. Small fat- containing umbilical hernia. The unenhanced liver, gallbladder, pancreas, spleen, and adrenal glands are unremarkable. No retroperitoneal lymphadenopathy. Normal caliber abdominal aorta. No pelvic lymphadenopathy or pelvic free fluid. Normal bladder. Suboptimal evaluation for bowel pathology due to the lack of intravenous and oral contrast. However, there is no definite bowel wall thickening or obstruction. Colonic diverticulosis. No evidence for acute panniculitis. Normal appendix. No definite renal or ureteral calculi. There are few bilateral renal hypodense lesions within the largest on the left measuring 2.6 cm. These are incompletely characterized on this noncontrast study but statistically represent cysts. IMPRESSION: 1. Lingular airspace opacity consistent with a pneumonia. 1-2 month chest x-ray follow-up recommended to ensure resolution. 2. No definite bowel wall thickening or obstruction. 3. No hydronephrosis. 4. Normal appendix. 5. Additional findings as described above. ACT 112: Negative or not required by law. Electronically signed by: Arjun Torres M.D. 07/14/2024 5:[address] 07/14/24 14:58 CT head/brain wo con CLINICAL HISTORY: 49 years-old Male with ams. Acutely altered mental status TECHNIQUE: Multiple axial CT images of the head were obtained without contrast. A dose lowering technique was utilized adhering to the principles of ALARA. CT DOSE: 625.8 mGy.cm COMPARISON: None. FINDINGS: No acute intracranial hemorrhage, midline shift, intracranial mass, hydrocephalus, territorial ischemia or abnormal extra-axial collection. The calvarium is intact. 3.7 cm focus of polypoid mucosal thickening within the left maxillary sinus. Mastoid air cells are generally clear. Unremarkable soft tissues. IMPRESSION: No acute intracranial abnormality. ACT 112: Negative or not required by law. The above report was generated using voice recognition software. It may contain grammatical, syntax or spelling errors. Electronically signed by: Simone Gupta M.D. 07/14/2024 5:06 PM Chest X-Ray 07/15/24 02:57 XR chest 1V portable HISTORY: hyponatremia COMPARISON: Abdomen and pelvis CT 07/14/2024. FINDINGS: No pneumothorax. The heart is mildly enlarged. Right lung is clear. Airspace opacity within the left mid to lower lung zone consistent with a pneumonia. No evidence for pulmonary edema. No acute fractures. IMPRESSION: Left lung airspace opacity consistent with a pneumonia. 1-2 month chest x-ray follow-up recommended to ensure resolution. ACT 112: Negative or not required by law. Electronically signed by: Arjun Torres M.D. 07/15/2024 7:39 AM Pending Results Patient Have Any Pending Studies at Discharge: No Discharge Instructions Given to Patient (Per Discharging Provider) F/U with Dr. Lester in 3 days F/U with Nephrology and Cardiology in 1-2 weeks Finish antibiotics Check lab work at hospital f/u (BMP, CBC and LFTs) Total Time Total Time Spent Total Time Spent (In Minutes): 60 minutes spent in discharge planning
[2024-07-18 15:20] VITALS: PULSE 85
[2024-07-19] MEDS ORDERED: amLODIPine BESYLATE 5 MG TAB PO SCH (09:00)
== END 2024-07-18 16:08 | disposition home or self-care (01) | DRG 193 ==
LOC: SUATTDRO → ED 14:20 → 2S 20:00 → SUATTDRO 20:00 → 2S 21:02